=== PATIENT | female | born 1985 | race Caucasian/White ===

== ENCOUNTER 2024-04-02 10:23 | Outpatient (AMB) | payer OTHER, SELFPAY ==
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
[2024-04-02 10:56] VITALS: BP 102/80; PULSE 92; O2SAT 99; BMI 44.2
== END 2024-04-02 12:31 | disposition home or self-care (01) ==
PROVIDERS: Visit Provider Internal Medicine
DX: S61.452A Open bite of left hand, initial encounter (principal); W55.01XA Bitten by cat, initial encounter; E66.01 Morbid (severe) obesity due to excess calories; Z68.41 Body mass index [BMI] 40.0-44.9, adult; F41.1 Generalized anxiety disorder; Z87.442 Personal history of urinary calculi

== ENCOUNTER → 2024-04-02 10:23 | Outpatient (BNVA) | payer SELFPAY | PROVIDERS: Visit Provider Internal Medicine | DX: N20.0 Calculus of kidney (principal) ==

== ENCOUNTER 2024-04-02 11:51 | Outpatient (REF) | payer OTHER, SELFPAY ==
[2024-04-02 13:12] LABS: MANUAL DIFF FLAG NO
[2024-04-02 13:19] LABS: Basophils Percent Auto 0.4 % (0-2); Eosinophils Absolute Auto 0.1 X10*3/uL (0.0-0.4); Eosinophils Percent Auto 1.3 % (0-4); Hemoglobin 13.5 g/dl (12.0-16.0); Imm Gran Abs Auto 0.02 X10*3/uL (0.00-0.03); Imm Gran Pct Auto 0.2 % (0.0-0.4); Lymphocytes Absolute Auto 2.8 X10*3/uL (1.2-4.9); Lymphocytes Percent Auto 27.9 % (20-40); Mean Corpuscular HGB Conc 33.8 g/dl (31.0-35.0); Mean Corpuscular Hemoglobin 28.1 pg (27.0-33.0); Mean Corpuscular Volume 83.3 fL (80.0-98.0); Mean Platelet Volume 11.4 fL (9.4-12.3); Monocytes Absolute Auto 0.6 X10*3/uL (0.1-1.2); Monocytes Percent Auto 5.8 % (2-11); Neutrophils Absolute Auto 6.5 x10*3/uL (2.0-8.3); Neutrophils Percent Auto 64.4 % (45-73); Platelet Count 250 X10*3/uL (160-400); Red Cell Distribution Width 12.7 % (11.0-16.0); White Blood Count 10.1 X10*3/uL (4.8-10.8)
== END 2024-04-02 11:52 | disposition home or self-care (01) ==
LOC: HO.HMGCLDS 11:51
PROVIDERS: PCP Internal Medicine; Visit Provider Internal Medicine
DX: S61.459A Open bite of unspecified hand, initial encounter (principal); W55.01XA Bitten by cat, initial encounter; Y99.9 Unspecified external cause status; Y93.9 Activity, unspecified; Y92.9 Unspecified place or not applicable
CPT/HCPCS: 36415; 85025; 90471; 90715; 96127

== ENCOUNTER 2024-05-09 15:40 | Outpatient (AMB) | payer OTHER, SELFPAY ==
--- NOTE | 2024-05-09 16:05 | A.OFFPSYCH_ITS ---
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 Allergies adhesive Adverse Reaction (Verified 04/02/24 11:19) rash Medication List - Last Reconciled 05/09/24 by VALENTINA Davila ac-eth estradiol 1-20 mg-mcg 1 tab PO DAILY omeprazole 20 mg PO DAILY Saxenda (liraglutide (weight loss)) inject subcutaneously once daily: week 1 = 0.6 mg; week 2 = 1.2 mg; week 3 = 1.8 mg; week 4 = 2.4 mg; then 3 mg daily subcut NS HPI- Psychiatric Chief Complaint: consultation HPI Narrative: pt reports significant depressin and anxiety; she avoids socializing due to anxiety and ruminating that she said or did something wrong;she worries all the time about a wide range of things. she has anxiety attacks; she sleeps poorly; she is very critical of herself; she feel tired; wakes frequently through the night. Past Psychiatric History: outpt med trials with PCP sertraline and lexapro not effective. Mental Status Exam Mental Status Exam Patient Appearance: Well Grooomed, Fatigued and Appropriate Patient Orientation: Person, Place, Time and Situation Level of Consciousness: Appropriate and Alert Patient Behavior: Appropriate and Crying (tearful) Mood Description: Depressed and Anxious Affect Description: Depressed and Anxious Patient Cognition Impaired: No Ability to Follow Directions: Good Speech Pattern: Clear and Soft-Spoken Memory Description: Intact Hallucinations: None Delusions: Not Present Thought Process: Intact, Rumination and Goal Oriented Thought Content: positive for Intact, positive for Goal Oriented and positive for Preoccupation Judgement: Good Assessment and Plan Assessment & Plan (1) Generalized anxiety disorder: Status: Acute Code(s): F41.1 - Generalized anxiety disorder (2) Major depressive disorder, single episode, moderate: Status: Acute Code(s): F32.1 - Major depressive disorder, single episode, moderate Medications: New duloxetine (Cymbalta) 30 mg PO DAILY 30 caps 1RF trazodone 50 mg PO BEDTIME PRN 30 tabs 1RF sleep Orders: Orders Vitamin D 25-OH (D2 and D3) Today F32.1 - Major depressive disorder, single episode, moderate Magnesium Today F32.1 - Major depressive disorder, single episode, moderate Comprehensive [place]. Panel Fast Today F41.1 - Generalized anxiety disorder Vitamin B12 and Folate Today F32.1 - Major depressive disorder, single episode, moderate, F41.1 - Generalized anxiety disorder TSH reflex Free T4 Today F32.1 - Major depressive disorder, single episode, moderate, F41.1 - Generalized anxiety disorder Counseling and coordination of Care Pt. Self Management counseling: Maintenance-social rhythm, Mod caffeine/ETOH intake, Nutrition education and improvement, Sleep hygiene, General coping skills and Problem solving Medication management counseling: Effectiveness, Side effects, Dosing range, Duration, Drug interaction and Adherence Diagnosis and Prognosis Counseling: Accuracy of diagnosis, Prognosis over time, Impact of diagnosis on life functions, Impact of family relationship, Problematic behaviors secondary to diagnosis and Adequacy of current interventions Details: I spent 75 minutes reviewing the record, seeing the patient and documenting in the medical record. Counseling provided to the patient/caregiver as outlined below. Addressed patient/caregiver concerns regarding current medication regime including effective adherence. Addressed patient/caregiver concerns regarding diagnosis and prognosis including accuracy of diagnosis, prognosis over time, impact of diagnosis. Addressed patient/caregiver concerns regarding impact of recent stressors. [facility] Medical History (Updated 05/09/24 @ 16:48 by Shaniqua Clark APRN) Recurrent nephrolithiasis Obesity Generalized anxiety disorder Cat bite of hand Hx of abnormal cervical Pap smear History of nephrolithiasis Surgical History (Updated 04/02/24 @ 11:30 by Cherelle Aragon MD) History of lithotripsy History of tubal ligation Hx of section Hx of dilation and curettage Family History (Updated 04/02/24 @ 11:32 by Cherelle Aragon MD) Father Substance use disorder Alcoholism Paternal Aunt Breast cancer Melanoma Mother Thyroid condition Social History (Updated 04/02/24 @ 11:34 by Cherelle Aragon MD) Housing: House Patient Tobacco Use Status: Former Tobacco user Tobacco use type: Cigarette e-Cigarette/Vaping Use: Never Used Substance Use Type: Marijuana service: No Current occupational status: employed 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
== END 2024-05-09 17:09 | disposition home or self-care (01) ==
LOC: HO.HOP 15:40
PROVIDERS: PCP Internal Medicine; Visit Provider Clinical Nurse Specialist Psychiatric/Mental Health
DX: F41.1 Generalized anxiety disorder (principal); F32.1 Major depressive disorder, single episode, moderate
CPT/HCPCS: 90792

== ENCOUNTER → 2024-05-09 15:40 | Outpatient (BNVA) | payer OTHER, SELFPAY | PROVIDERS: PCP Internal Medicine; Visit Provider Clinical Nurse Specialist Psychiatric/Mental Health | DX: F41.1 Generalized anxiety disorder (principal); F32.1 Major depressive disorder, single episode, moderate | CPT/HCPCS: 90792 ==

== ENCOUNTER 2024-06-09 15:34 | Outpatient (AMB) | payer OTHER, SELFPAY ==
--- NOTE | 2024-06-09 16:15 | MHC.OFFVISPS ---
Intake Intake Visit Reasons: f/u consultation Building Code Administrator Required: No Allergies adhesive Adverse Reaction (Verified 04/02/24 11:19) rash Medication List - Last Reconciled 06/09/24 by Shaniqua Clark APRN duloxetine (Cymbalta) 30 mg PO DAILY norethindrone ac-eth estradiol 1-20 mg-mcg 1 tab PO DAILY omeprazole 20 mg PO DAILY Saxenda (liraglutide (weight loss)) inject subcutaneously once daily: week 1 = 0.6 mg; week 2 = 1.2 mg; week 3 = 1.8 mg; week 4 = 2.4 mg; then 3 mg daily subcut NS trazodone 100 mg PO BEDTIME PRN HPI- Psychiatric Chief Complaint: f/u consultation HPI Narrative: Patient reports some improvement with Cymbalta 30 mg. She does have some increased anxiety since learning she will have to have a hysterectomy. She trouble sleeping at night despite 100 mg trazodone she still wakes after 2-3 hours. She has no sedation patient. She has no side effects from the medication. She reports no SI no HI. her PHQ-9 equals 12. Her G A D 7 equals 11 Past Psychiatric History: outpt med trials with PCP sertraline and lexapro not effective. Subjective Subjective Subjective Medication Compliance: Yes Review of Systems Medical Review of Systems: unchanged Mental Status Exam Mental Status Exam Patient Appearance: Well Grooomed Patient Orientation: Person, Place, Time and Situation Level of Consciousness: Awake and Appropriate Patient Behavior: Appropriate Mood Description: Anxious and Sad Affect Description: Anxious and Sad Patient Cognition Impaired: No Ability to Follow Directions: Good Speech Pattern: Clear Memory Description: Intact Hallucinations: None Delusions: Not Present Thought Process: Intact Thought Content: positive for Intact Judgement: Good Assessment and Plan Assessment & Plan (1) Major depressive disorder, single episode, moderate: Status: Acute Code(s): F32.1 - Major depressive disorder, single episode, moderate (2) Generalized anxiety disorder: Status: Acute Code(s): F41.1 - Generalized anxiety disorder Plan Increase duloxetine to 60 mg daily Increase trazodone to 150 mg at bedtime. Return in 4-6 weeks Medications: New duloxetine 60 mg PO DAILY 90 caps 1RF Changed From trazodone 100 mg PO BEDTIME PRN 30 tabs 2RF sleep To trazodone 150 mg (1.5 x 100 mg) PO BEDTIME PRN 135 tabs 2RF sleep Discontinued duloxetine (Cymbalta) Discontinued Reason: Doctor's Order 30 mg PO DAILY 30 caps 1RF On Hold Saxenda (liraglutide (weight loss)) Hold Comment: Doctor's Order inject subcutaneously once daily: week 1 = 0.6 mg; week 2 = 1.2 mg; week 3 = 1.8 mg; week 4 = 2.4 mg; then 3 mg daily subcut 15 mL 0RF NS E66.01 - Morbid (severe) obesity due to excess calories, Z68.41 - Body mass index [BMI] 40.0-44.9, adult Counseling and coordination of Care Pt. Self Management counseling: Maintenance-social rhythm, Behavior activation, General coping skills and Problem solving Medication management counseling: Effectiveness, Side effects, Dosing range, Duration and Drug interaction Diagnosis and Prognosis Counseling: Accuracy of diagnosis, Prognosis over time, Impact of diagnosis on life functions, Problematic behaviors secondary to diagnosis and Adequacy of current interventions Details: I spent [] minutes reviewing the record, seeing the patient and documenting in the medical record. Counseling provided to the patient/caregiver as outlined below. Addressed patient/caregiver concerns regarding current medication regime including effective adherence. Addressed patient/caregiver concerns regarding diagnosis and prognosis including accuracy of diagnosis, prognosis over time, impact of diagnosis. Addressed patient/caregiver concerns regarding impact of recent stressors. [facility] Medical History (Updated 05/09/24 @ 16:48 by Shaniqua Clark APRN) Recurrent nephrolithiasis Obesity Generalized anxiety disorder Cat bite of hand Hx of abnormal cervical Pap smear History of nephrolithiasis Surgical History (Updated 04/02/24 @ 11:30 by Cherelle Aragon MD) History of lithotripsy History of tubal ligation Hx of section Hx of dilation and curettage Family History (Updated 04/02/24 @ 11:32 by Cherelle Aragon MD) Father Substance use disorder Alcoholism Paternal Aunt Breast cancer Melanoma Mother Thyroid condition Social History (Updated 04/02/24 @ 11:34 by Cherelle Aragon MD) Housing: House Patient Tobacco Use Status: Former Tobacco user Tobacco use type: Cigarette e-Cigarette/Vaping Use: Never Used Substance Use Type: Marijuana service: No Current occupational status: employed 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
== END 2024-06-09 16:36 | disposition home or self-care (01) ==
LOC: HO.HOP 15:34
PROVIDERS: PCP Internal Medicine; Visit Provider Clinical Nurse Specialist Psychiatric/Mental Health
DX: F32.1 Major depressive disorder, single episode, moderate (principal); F41.1 Generalized anxiety disorder
CPT/HCPCS: 99214

== ENCOUNTER → 2024-06-09 15:34 | Outpatient (BNVA) | payer OTHER, SELFPAY | PROVIDERS: PCP Internal Medicine; Visit Provider Clinical Nurse Specialist Psychiatric/Mental Health ==

== ENCOUNTER 2024-07-10 15:55 | Outpatient (AMB) | payer OTHER, SELFPAY ==
--- NOTE | 2024-07-10 16:08 | MHC.OFFVISPS ---
Intake Intake Visit Reasons: f/u consultation Oil Treater Required: No Allergies adhesive Adverse Reaction (Verified 04/02/24 11:19) rash Medication List - Last Reconciled 07/10/24 by Shaniqua Clark APRN duloxetine 120 mg (2 x 60 mg) PO DAILY norethindrone ac-eth estradiol 1-20 mg-mcg 1 tab PO DAILY omeprazole 20 mg PO DAILY trazodone 150 mg (1.5 x 100 mg) PO BEDTIME PRN HPI- Psychiatric Chief Complaint: f/u consultation HPI Narrative: Pt stable overall ; reports anxiety is decreased; depression decreased; GAD7 was 19 now down to 2.5. PHQ9 was 17 now is 4. She is anticipating surgery for hysterectomy; she is a little anxious but coping well; she has consult on Jul 22. No other changes; no SI or HI Past Psychiatric History: outpt med trials with PCP sertraline and lexapro not effective. Subjective Subjective Subjective Medication Compliance: Yes Side effects from medications: No Review of Systems Medical Review of Systems: unchanged Mental Status Exam Mental Status Exam Patient Appearance: Well Grooomed and Appropriate Patient Orientation: Person, Place, Time and Situation Level of Consciousness: Awake and Appropriate Patient Behavior: Appropriate and Cooperative Mood Description: Nervous Affect Description: Nervous Patient Cognition Impaired: No Ability to Follow Directions: Good Speech Pattern: Clear and Appropriate Memory Description: Intact Hallucinations: None Delusions: Not Present Thought Process: Intact Thought Content: positive for Intact Judgement: Fair Assessment and Plan Assessment & Plan (1) Major depressive disorder, single episode, moderate: Status: Acute Code(s): F32.1 - Major depressive disorder, single episode, moderate (2) Generalized anxiety disorder: Status: Acute Code(s): F41.1 - Generalized anxiety disorder Plan continue medications cymbalta and trazodone retrun in 8 weeks Counseling and coordination of Care Pt. Self Management counseling: Mod caffeine/ETOH intake, Sleep hygiene, General coping skills and Problem solving Medication management counseling: Effectiveness, Side effects, Dosing range, Duration, Drug interaction and Adherence Diagnosis and Prognosis Counseling: Accuracy of diagnosis, Prognosis over time, Impact of diagnosis on life functions, Impact of family relationship, Problematic behaviors secondary to diagnosis and Adequacy of current interventions Details: I spent 40 minutes reviewing the record, seeing the patient and documenting in the medical record. Counseling provided to the patient/caregiver as outlined below. Addressed patient/caregiver concerns regarding current medication regime including effective adherence. Addressed patient/caregiver concerns regarding diagnosis and prognosis including accuracy of diagnosis, prognosis over time, impact of diagnosis. Addressed patient/caregiver concerns regarding impact of recent stressors. [facility] Medical History (Updated 05/09/24 @ 16:48 by Shaniqua Clark APRN) Recurrent nephrolithiasis Obesity Generalized anxiety disorder Cat bite of hand Hx of abnormal cervical Pap smear History of nephrolithiasis Surgical History (Updated 04/02/24 @ 11:30 by Cherelle Aragon MD) History of lithotripsy History of tubal ligation Hx of section Hx of dilation and curettage Family History (Updated 04/02/24 @ 11:32 by Cherelle Aragon MD) Father Substance use disorder Alcoholism Paternal Aunt Breast cancer Melanoma Mother Thyroid condition Social History (Updated 04/02/24 @ 11:34 by Cherelle Aragon MD) Housing: House Patient Tobacco Use Status: Former Tobacco user Tobacco use type: Cigarette e-Cigarette/Vaping Use: Never Used Substance Use Type: Marijuana service: No Current occupational status: employed 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
== END 2024-07-10 16:49 | disposition home or self-care (01) ==
LOC: HO.HOP 15:55
PROVIDERS: PCP Internal Medicine; Visit Provider Clinical Nurse Specialist Psychiatric/Mental Health
DX: F32.1 Major depressive disorder, single episode, moderate (principal); F41.1 Generalized anxiety disorder
CPT/HCPCS: 99214

== ENCOUNTER 2024-09-09 16:01 | Outpatient (AMB) | payer OTHER, SELFPAY ==
--- NOTE | 2024-09-09 16:28 | MHC.OFFVISPS ---
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 Required: No Allergies adhesive Adverse Reaction (Verified 04/02/24 11:19) rash Medication List - Last Reconciled 09/09/24 by Shaniqua Clark APRN [Compound Semaglutide IM] duloxetine 120 mg (2 x 60 mg) PO DAILY omeprazole 20 mg PO DAILY trazodone 200 mg (2 x 100 mg) PO BEDTIME PRN trospium 20 mg PO BID HPI- Psychiatric Chief Complaint: f/u consultation HPI Narrative: pt has surgery on Sunday for full hystrectomy; she is very anxious; cant sleep through night; falls alseep but then wakes up and tosses and turns the rest of night; she is more anxious the closer it gets to surgery; she is trying to be prepared; she has good support form family, and chr=urch. no side effects from meds; no SI or HI. surgeon gave her ativan 0.5mg for the night before surgery; discussed nt changing her meds too muchbefore surgery; discussed temporarily adding 0.25mg of ativan in middle of night if can't fall back to sleep until . she will follow surgeon instructiions for the night before surgery and take the ativan 0.5mg . after surgery she will not take any ativan until she is completely off opiates. Past Psychiatric History: outpt med trials with PCP sertraline and lexapro not effective. Mental Status Exam Mental Status Exam Patient Appearance: Well Grooomed Patient Orientation: Person, Place, Time and Situation Level of Consciousness: Awake Patient Behavior: Appropriate Mood Description: Anxious Affect Description: Anxious Patient Cognition Impaired: No Hallucinations: None Thought Process: Intact Thought Content: positive for Intact Judgement: Good Assessment and Plan Assessment & Plan (1) Major depressive disorder, single episode, moderate: Status: Acute Code(s): F32.1 - Major depressive disorder, single episode, moderate (2) Generalized anxiety disorder: Status: Acute Code(s): F41.1 - Generalized anxiety disorder Plan add 0.25mg of ativan in middle of night if can't fall back to sleep until Sunday. follow surgeon instructions for the night before surgery and take the ativan 0.5mg after surgery she will not take any ativan until she is completely off opiates. return in 4 weeks for f/u - if not able to come i ok to have telehealth session will see 1-2 more times and then pt will return to PCP Medications: New lorazepam 0.25 mg (1/2 x 0.5 mg) PO BEDTIME PRN 20 tabs 0RF anxiety Refilled duloxetine 120 mg (2 x 60 mg) PO DAILY 180 caps 1RF trazodone 200 mg (2 x 100 mg) PO BEDTIME PRN 120 tabs 2RF sleep Counseling and coordination of Care Pt. Self Management counseling: Med illness tx adherence, Mod caffeine/ETOH intake and Sleep hygiene Medication management counseling: Effectiveness, Side effects, Dosing range, Duration, Drug interaction and Adherence Diagnosis and Prognosis Counseling: Accuracy of diagnosis, Prognosis over time, Impact of diagnosis on life functions, Impact of family relationship, Problematic behaviors secondary to diagnosis and Adequacy of current interventions Details: I spent 37 minutes reviewing the record, seeing the patient and documenting in the medical record. Counseling provided to the patient/caregiver as outlined below. Addressed patient/caregiver concerns regarding current medication regime including effective adherence. Addressed patient/caregiver concerns regarding diagnosis and prognosis including accuracy of diagnosis, prognosis over time, impact of diagnosis. Addressed patient/caregiver concerns regarding impact of recent stressors. [facility] Medical History (Updated 05/09/24 @ 16:48 by Shaniqua Clark APRN) Recurrent nephrolithiasis Obesity Generalized anxiety disorder Cat bite of hand Hx of abnormal cervical Pap smear History of nephrolithiasis Surgical History (Updated 04/02/24 @ 11:30 by Cherelle Aragon MD) History of lithotripsy History of tubal ligation Hx of section Hx of dilation and curettage Family History (Updated 04/02/24 @ 11:32 by Cherelle Aragon MD) Father Substance use disorder Alcoholism Paternal Aunt Breast cancer Melanoma Mother Thyroid condition Social History (Updated 04/02/24 @ 11:34 by Cherelle Aragon MD) Housing: House Patient Tobacco Use Status: Former Tobacco user Tobacco use type: Cigarette e-Cigarette/Vaping Use: Never Used Substance Use Type: Marijuana service: No Current occupational status: employed 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
--- OUTSIDE RECORDS SUMMARY | 2024-09-09 19:36 | XMS_ITS | Clinical Summary ---
Author Organization [facility] Address [address] [place] [address] Phone Care Team Providers Care Imcu Nurse Name Role Phone Unavailable Primary Care Provider Unavailabl e Immunizations Immunization Administration Dates Next Due DTP 08/27/1992, 1,08/17/1989,10/03 Hep B, ped/adol 04/04/2000,12/05/1999,02/23/1999 Hib (PRP-T) 03/04/1991 IPV 08/27/1992 MMR 02/23/1999,08/17/1989 Meningococcal Conj (Menactra) MCV4P 12/01/2005 OPV 03/04/1991,08/17/1989,1987 Td (adult) (MBL), 2 Lf tetan us toxoid, PF, adsorbed 04/04/2000 Td (adult) (Tenivac), 5 Lf t etanus toxoid, PF, adsorbed 12/15/1994 Family History Relation Name Status Comments Brother Brother: ADD/AD HD Father Alive Father: Alive a nd well Mother Mother: Asthma, Migraines Other No family histo ry of Deafness, No family history of Autism, Family history of ADD/ADHD, Family history of Strabismus/amblyopia, No family history of Elevated cholesterol, No family history of Obesity, Family history of Migraines, No family history of Diabetes mellitus, No family history of Developmental dislocation of hip, No family history of Sudden /[place] under age 55, No family history of Asthma, No family history of Seizure disorder Paternal Grandmother Alive Paterna l aunt: Cancer -skin Social History Tobacco Use Types Packs/Day Years Used Date Smoking Tobacco: Never Assessed Comments Unknown Sex and Gender Information Value Date Recorded Sex Assigned at Not on file Legal Sex Female 4:26 PM EDT Gender Identity Not on file Sexual Orientation Not on file Plan of Treatment Health Maintenance Due Date Last Done Comments Varicella Vaccines (1 of 2 - 13+ 2-dose series) 2000 DTaP,Tdap,and Td Vaccines (7 - Td or Tdap) 02/14/2023 02/14/2013, 12/21/2007, 04/04/2000, Additional history exists Influenza Vaccines (#1) 2024 05/13/20 20, 06/05/2019, 04/26/2018, Additional history exists COVID-19 Vaccine ( season) 2024 07/20/2021, 11/27/2020, 11/06/2020 HIB Vaccines Completed 03/04/1991 IPV Vaccines Completed 08/27/1992, 02/14, 08/17/1989, Additional history exists MMR Vaccines Completed 02/23/1999, 08/17/1989 Hepatitis B Vaccines Completed 04/04/2000, 12/05/1999, 02/23/1999 Meningococcal Vaccine Completed 12/01/2005 HPV Vaccines Aged Out No longer eligi ble based on patient's age to complete this topic Hepatitis A Vaccines Aged Out No long er eligible based on patient's age to complete this topic Men B Vaccine Aged Out No longer elig ible based on patient's age to complete this topic Pneumococcal Vaccine Aged Out No long er eligible based on patient's age to complete this topic
--- OUTSIDE RECORDS SUMMARY | 2024-09-09 19:36 | XMS_ITS | Encounter Summary ---
Author Organization [facility] Address [address] [place] [address] Phone Care Team Providers Care Ornament Setter Name Role Phone Kamilah Richardson MD Primary Care Provider [phone] Encounter Details Date Type Department Care Team (Late st Contact Info) Description 03/01/2017 Conversion Encounter [facility] - [address] [id number] Social History Tobacco Use Types Packs/Day Years Used Date Smoking Tobacco: Never Assessed Comments Unknown Sex and Gender Information Value Date Recorded Sex Assigned at Not on file Legal Sex Female 4:26 PM EDT Gender Identity Not on file Sexual Orientation Not on file documented as of this encounter Plan of Treatment Not on file documented as of this encounter Visit Diagnoses Not on filedocumented in this encounter Care Teams Ornament Setter Relationship Specialty Start Date End Date Kamilah Richardson MD [address] [place] [id number] PCP - General 02/23/17 10/26/22 documented as of this encounter
== END 2024-09-09 16:57 | disposition home or self-care (01) ==
LOC: HO.HOP 16:01
PROVIDERS: PCP Internal Medicine; Visit Provider Clinical Nurse Specialist Psychiatric/Mental Health
DX: F32.1 Major depressive disorder, single episode, moderate (principal); F41.1 Generalized anxiety disorder
CPT/HCPCS: 99214

== ENCOUNTER 2024-10-07 13:20 | Outpatient (AMB) | payer OTHER, SELFPAY ==
--- NOTE | 2024-10-07 13:10 | MHC.OFFVISPS ---
Intake Intake Visit Reasons: f/u consultation Allergies adhesive Adverse Reaction (Verified 04/02/24 11:19) rash Medication List - Last Reconciled 10/07/24 by Shaniqua Clark APRN [Compound Semaglutide IM] duloxetine 120 mg (2 x 60 mg) PO DAILY lorazepam 0.25 mg (1/2 x 0.5 mg) PO BEDTIME PRN omeprazole 20 mg PO DAILY trazodone 200 mg (2 x 100 mg) PO BEDTIME PRN trospium 20 mg PO BID HPI- Psychiatric Chief Complaint: f/u consultation HPI Narrative: follow up for depression, insomnia and anxiety pt stable had successful surgery recovering [place] anxious to go back to work no changes inmental status compliant with meds no side effects. Past Psychiatric History: outpt med trials with PCP sertraline and lexapro not effective. Subjective Subjective Subjective Medication Compliance: Yes Review of Systems Medical Review of Systems: unchanged Mental Status Exam Mental Status Exam Patient Appearance: Well Grooomed and Appropriate Patient Orientation: Person, Place, Time and Situation Level of Consciousness: Awake and Appropriate Patient Behavior: Appropriate Mood Description: Happy Affect Description: Happy Patient Cognition Impaired: No Ability to Follow Directions: Good Speech Pattern: Clear and Appropriate Memory Description: Intact Hallucinations: None Delusions: Not Present Thought Process: Intact and Goal Oriented Thought Content: positive for Intact Judgement: Good Telehealth Telehealth Telehealth Platform: Other (please specify) ([email or web address]) Location of provider rendering services: practice address Location of patient: address on file Patient Identification confirmed using: Name, : Yes Telehealth method: video Patient verbally consented to treatment: Yes Patient verbally consented to billing insurance company: Yes Patient informed of any privacy concerns related to visit: Yes Minutes spent on Phone/Video with Pt.: 30 Assessment and Plan Assessment & Plan (1) Major depressive disorder, single episode, moderate: Status: Acute Code(s): F32.1 - Major depressive disorder, single episode, moderate (2) Generalized anxiety disorder: Status: Acute Code(s): F41.1 - Generalized anxiety disorder Plan continue cymbalta and trazodone follow up in 4-6 weeks Counseling and coordination of Care Pt. Self Management counseling: Maintenance-social rhythm, Med illness tx adherence, Mod caffeine/ETOH intake, Nutrition education and improvement, Sleep hygiene and Problem solving Medication management counseling: Effectiveness, Side effects, Dosing range, Duration, Drug interaction and Adherence Diagnosis and Prognosis Counseling: Accuracy of diagnosis, Prognosis over time, Impact of diagnosis on life functions, Impact of family relationship, Problematic behaviors secondary to diagnosis and Adequacy of current interventions Details: I spent 35 minutes reviewing the record, seeing the patient and documenting in the medical record. Counseling provided to the patient/caregiver as outlined below. Addressed patient/caregiver concerns regarding current medication regime including effective adherence. Addressed patient/caregiver concerns regarding diagnosis and prognosis including accuracy of diagnosis, prognosis over time, impact of diagnosis. Addressed patient/caregiver concerns regarding impact of recent stressors. [facility] Medical History (Updated 05/09/24 @ 16:48 by Shaniqua Clark APRN) Recurrent nephrolithiasis Obesity Generalized anxiety disorder Cat bite of hand Hx of abnormal cervical Pap smear History of nephrolithiasis Surgical History (Updated 04/02/24 @ 11:30 by Cherelle Aragon MD) History of lithotripsy History of tubal ligation Hx of section Hx of dilation and curettage Family History (Updated 04/02/24 @ 11:32 by Cherelle Aragon MD) Father Substance use disorder Alcoholism Paternal Aunt Breast cancer Melanoma Mother Thyroid condition Social History (Updated 04/02/24 @ 11:34 by Cherelle Aragon MD) Housing: House Patient Tobacco Use Status: Former Tobacco user Tobacco use type: Cigarette e-Cigarette/Vaping Use: Never Used Substance Use Type: Marijuana service: No Current occupational status: employed 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
== END 2024-10-07 13:22 | disposition home or self-care (01) ==
LOC: HO.HOP 13:20
PROVIDERS: PCP Internal Medicine; Visit Provider Clinical Nurse Specialist Psychiatric/Mental Health
DX: F32.1 Major depressive disorder, single episode, moderate (principal); F41.1 Generalized anxiety disorder
CPT/HCPCS: 98006

== ENCOUNTER → 2024-10-07 13:20 | Outpatient (BNVA) | payer OTHER, SELFPAY | PROVIDERS: PCP Internal Medicine; Visit Provider Clinical Nurse Specialist Psychiatric/Mental Health ==

== ENCOUNTER 2024-11-20 16:27 | Outpatient (AMB) | payer OTHER, SELFPAY ==
--- NOTE | 2024-11-20 16:03 | MHC.OFFVISPS ---
Intake Intake Visit Reasons: f/u consultation International Account Executive Required: No Allergies adhesive Adverse Reaction (Verified 04/02/24 11:19) rash Medication List - Last Reconciled 11/20/24 by Shaniqua Clark APRN [Compound Semaglutide IM] duloxetine 120 mg (2 x 60 mg) PO DAILY lorazepam 0.25 mg (1/2 x 0.5 mg) PO BEDTIME PRN omeprazole 20 mg PO DAILY trazodone 200 mg (2 x 100 mg) PO BEDTIME PRN trospium 20 mg PO BID HPI- Psychiatric Chief Complaint: f/u consultation HPI Narrative: pt reports stable mood overall; she reports sadness and anxiety due to news of 2 deaths in her family- one from suicide and the other from cancer. she reports some trouble sleeping. waking in middle of night. medications help. she denies any side effects from medications; she denies SI or HI. She is functioning well at home and work. Past Psychiatric History: outpt med trials with PCP sertraline and lexapro not effective. Subjective Subjective Subjective Medication Compliance: Yes Side effects from medications: No Review of Systems Medical Review of Systems: unchanged Mental Status Exam Mental Status Exam Patient Appearance: Well Grooomed and Appropriate Patient Orientation: Person, Place, Time and Situation Level of Consciousness: Awake, Appropriate and Alert Patient Behavior: Appropriate and Cooperative Mood Description: Sad Affect Description: Sad Patient Cognition Impaired: No Ability to Follow Directions: Good Speech Pattern: Clear Memory Description: Intact Hallucinations: None Delusions: Not Present Thought Process: Intact and Goal Oriented Thought Content: positive for Intact and positive for Goal Oriented Judgement: Fair Telehealth Telehealth Telehealth Platform: Other (please specify) ([email or web address]) Location of provider rendering services: practice address Location of patient: address on file Patient Identification confirmed using: Name, : Yes Telehealth method: video Patient verbally consented to treatment: Yes Patient verbally consented to billing insurance company: Yes Patient informed of any privacy concerns related to visit: Yes Minutes spent on Phone/Video with Pt.: 25 Assessment and Plan Assessment & Plan (1) Major depressive disorder, single episode, moderate: Status: Acute Code(s): F32.1 - Major depressive disorder, single episode, moderate (2) Generalized anxiety disorder: Status: Acute Code(s): F41.1 - Generalized anxiety disorder Plan continue duloxetine and trazodone okay to increase ativan to 0.5mg at bedtime prn for 30 days Medications: Changed From lorazepam 0.25 mg (1/2 x 0.5 mg) PO BEDTIME PRN 20 tabs 0RF anxiety To lorazepam 0.5 mg PO BEDTIME PRN 30 tabs 0RF anxiety Refilled duloxetine 120 mg (2 x 60 mg) PO DAILY 180 caps 1RF trazodone 200 mg (2 x 100 mg) PO BEDTIME PRN 120 tabs 2RF sleep Counseling and coordination of Care Pt. Self Management counseling: Maintenance-social rhythm, Mod caffeine/ETOH intake, Sleep hygiene, Behavior activation, General coping skills and Problem solving Medication management counseling: Effectiveness, Side effects, Dosing range, Duration, Drug interaction and Adherence Diagnosis and Prognosis Counseling: Accuracy of diagnosis, Prognosis over time, Impact of diagnosis on life functions, Impact of family relationship, Problematic behaviors secondary to diagnosis and Adequacy of current interventions Details: I spent 35 minutes reviewing the record, seeing the patient and documenting in the medical record. Counseling provided to the patient/caregiver as outlined below. Addressed patient/caregiver concerns regarding current medication regime including effective adherence. Addressed patient/caregiver concerns regarding diagnosis and prognosis including accuracy of diagnosis, prognosis over time, impact of diagnosis. Addressed patient/caregiver concerns regarding impact of recent stressors. [facility] Medical History (Updated 11/07/24 @ 15:55 by Cherelle Aragon MD) Skin cancer screening Recurrent nephrolithiasis Obesity Generalized anxiety disorder Cat bite of hand Hx of abnormal cervical Pap smear History of nephrolithiasis Surgical History (Updated 04/02/24 @ 11:30 by Cherelle Aragon MD) History of lithotripsy History of tubal ligation Hx of section Hx of dilation and curettage Family History (Updated 04/02/24 @ 11:32 by Cherelle Aragon MD) Father Substance use disorder Alcoholism Paternal Aunt Breast cancer Melanoma Mother Thyroid condition Social History (Updated 04/02/24 @ 11:34 by Cherelle Aragon MD) Housing: House Patient Tobacco Use Status: Former Tobacco user Tobacco use type: Cigarette e-Cigarette/Vaping Use: Never Used Substance Use Type: Marijuana service: No Current occupational status: employed 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
--- OUTSIDE RECORDS SUMMARY | 2024-11-20 16:29 | XMS_ITS | Encounter Summary ---
Author Organization [facility] Address [address] [place] [phone] Phone Care Team Providers Care Display And Banner Designer Name Role Phone Kamilah Richardson MD Primary Care Provider [phone] Encounter Details Date Type Department Care Team (Late st Contact Info) Description 03/01/2017 Conversion Encounter [facility] - [address] [address] Social History Tobacco Use Types Packs/Day Years [...] on filedocumented in this encounter Care Teams Display And Banner Designer Relationship Specialty Start Date End Date Kamilah Richardson MD [address] [place] [phone] PCP - General 02/23/17 10/26/22 documented as of this encounter
--- OUTSIDE RECORDS SUMMARY | 2024-11-20 16:29 | XMS_ITS | Clinical Summary ---
Author Organization [facility] Address [address] [place] [id number] Phone Care Team Providers Care Audience Development Manager Name Role Phone Unavailable Primary Care Provider [...] of hip, No family history of Sudden /[place] under age 55, No family history of [...]
== END 2024-11-20 16:30 | disposition home or self-care (01) ==
LOC: HO.HOP 16:27
PROVIDERS: PCP Internal Medicine; Visit Provider Clinical Nurse Specialist Psychiatric/Mental Health
DX: F32.1 Major depressive disorder, single episode, moderate (principal); F41.1 Generalized anxiety disorder
CPT/HCPCS: 99214

== ENCOUNTER → 2024-11-20 16:27 | Outpatient (BNVA) | payer OTHER, SELFPAY | PROVIDERS: PCP Internal Medicine; Visit Provider Clinical Nurse Specialist Psychiatric/Mental Health ==

== ENCOUNTER 2025-01-13 12:09 | Outpatient (AMB) | payer OTHER, SELFPAY ==
--- NOTE | 2025-01-13 11:51 | A.OFFPSYCH_ITS ---
Intake Intake Visit Reasons: depression Associate Product Integrity Engineer Required: No Allergies adhesive Adverse Reaction (Verified 04/02/24 11:19) rash Medication List - Last Reconciled 01/13/25 by Shaniqua Clark APRN [Compound Semaglutide IM] duloxetine 120 mg (2 x 60 mg) PO DAILY lorazepam 0.5 mg PO BEDTIME PRN omeprazole 20 mg PO DAILY trazodone 200 mg (2 x 100 mg) PO BEDTIME PRN trospium 20 mg PO BID HPI- Psychiatric Chief Complaint: depression HPI Narrative: pt reports stable mood overall; she reports sadness and anxiety due to conflict with . she reports some trouble sleeping. waking in middle of night. medications help. she denies any side effects from medications; she denies SI or HI. She is functioning well at home and work. Past Psychiatric History: outpt med trials with PCP sertraline and lexapro not effective. Mental Status Exam Mental Status Exam Patient Appearance: Well Grooomed and Appropriate Patient Orientation: Person, Place, Time and Situation Level of Consciousness: Awake, Appropriate and Alert Patient Behavior: Appropriate and Cooperative Mood Description: Sad Affect Description: Sad Patient Cognition Impaired: No Ability to Follow Directions: Good Speech Pattern: Clear Memory Description: Intact Hallucinations: None Delusions: Not Present Thought Process: Intact and Goal Oriented Thought Content: positive for Intact and positive for Goal Oriented Judgement: Fair Telehealth Telehealth Telehealth Platform: Other (please specify) ([email or web address]) Location of provider rendering services: practice address Location of patient: address on file Patient Identification confirmed using: Name, : Yes Telehealth method: video Patient verbally consented to treatment: Yes Patient verbally consented to billing insurance company: Yes Patient informed of any privacy concerns related to visit: Yes Minutes spent on Phone/Video with Pt.: 25 Assessment and Plan Assessment & Plan (1) Major depressive disorder, single episode, moderate: Status: Acute Code(s): F32.1 - Major depressive disorder, single episode, moderate (2) Generalized anxiety disorder: Status: Acute Code(s): F41.1 - Generalized anxiety disorder Plan continue duloxetine and trazodone okay to increase ativan to 0.5mg at bid and bedtime prn for anxiety/sleep Medications: Changed From lorazepam 0.5 mg PO BEDTIME PRN 30 tabs 0RF anxiety To lorazepam 0.5 mg PO BID PRN 45 tabs 1RF anxiety/insomnia Counseling and coordination of Care Pt. Self Management counseling: Maintenance-social rhythm, Mod caffeine/ETOH intake, Sleep hygiene, Behavior activation, General coping skills and Problem solving Medication management counseling: Effectiveness, Side effects, Dosing range, Duration, Drug interaction and Adherence Diagnosis and Prognosis Counseling: Accuracy of diagnosis, Prognosis over time, Impact of diagnosis on life functions, Impact of family relationship, Probl ematic behaviors secondary to diagnosis and Adequacy of current interventions Details: I spent 35 minutes reviewing the record, seeing the patient and documenting in the medical record. Counseling provided to the patient/caregiver as outlined below. Addressed patient/caregiver concerns regarding current medication regime including effective adherence. Addressed patient/caregiver concerns regarding diagnosis and prognosis including accuracy of diagnosis, prognosis over time, impact of diagnosis. Addressed patient/caregiver concerns regarding impact of recent stressors. REPLACED BY [facility] Medical History (Updated 11/07/24 @ 15:55 by Cherelle Aragon MD) Skin cancer screening Recurrent nephrolithiasis Obesity Generalized anxiety disorder Cat bite of hand Hx of abnormal cervical Pap smear History of nephrolithiasis Surgical History (Updated 04/02/24 @ 11:30 by Cherelle Aragon MD) History of lithotripsy History of tubal ligation Hx of section Hx of dilation and curettage Family History (Updated 04/02/24 @ 11:32 by Cherelle Aragon MD) Father Substance use disorder Alcoholism Paternal Aunt Breast cancer Melanoma Mother Thyroid condition Social History (Updated 04/02/24 @ 11:34 by Cherelle Aragon MD) Housing: House Patient Tobacco Use Status: Former Tobacco user Tobacco use type: Cigarette e-Cigarette/Vaping Use: Never Used Substance Use Type: Marijuana service: No Current occupational status: employed 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
--- OUTSIDE RECORDS SUMMARY | 2025-01-13 13:12 | XMS_ITS | Clinical Summary ---
Author Organization [facility] Address [address] [place] [id number] Phone Care Team Providers Care Forestry Aid Technician Name Role Phone Unavailable Primary Care Provider [...] 02/14/2023 02/14/2013, 12/21/2007, 04/04/2000, Additional history exists COVID-19 Vaccine ( season) 2024 07/20/2021, 11/27/2020, 11/06/2020 Influenza Vaccines (#1) 2025 05/13/20, 06/05/2019, 04/26/2018, Additional history exists HIB Vaccines Completed 03/04/1991 IPV Vaccines Completed [...]
== END 2025-01-13 12:10 | disposition home or self-care (01) ==
LOC: HO.HOP 12:09
PROVIDERS: PCP Internal Medicine; Visit Provider Clinical Nurse Specialist Psychiatric/Mental Health
DX: F32.1 Major depressive disorder, single episode, moderate (principal); F41.1 Generalized anxiety disorder
CPT/HCPCS: 99214

== ENCOUNTER 2025-02-10 16:02 | Outpatient (AMB) | payer OTHER, SELFPAY ==
--- NOTE | 2025-02-10 16:13 | MHC.OFFVISPS ---
Intake Intake Visit Reasons: depression Varnisher Required: No Allergies adhesive Adverse Reaction (Verified 04/02/24 11:19) rash Medication List - Last Reconciled 02/10/25 by Shaniqua Clark APRN [Compound Semaglutide IM] duloxetine 120 mg (2 x 60 mg) PO DAILY lorazepam 0.5 mg PO BID PRN omeprazole 20 mg PO DAILY trazodone 200 mg (2 x 100 mg) PO BEDTIME PRN trospium 20 mg PO BID HPI- Psychiatric Chief Complaint: depression HPI Narrative: pt reports less depression but increase anxiety, panic, tachycardia. anxiety about conflict with . Father just dx with a tumor on lung- awaiting biopsy. she reports some trouble sleeping. waking in middle of night. medications help with falling asleep but wakes 4-6 times every bight; she denies SI or HI. Anxiety is effecting functioning at home and work. Past Psychiatric History: outpt med trials with PCP sertraline and lexapro not effective. Subjective Subjective Subjective Medication Compliance: Yes Side effects from medications: No Review of Systems Medical Review of Systems: unchanged Mental Status Exam Mental Status Exam Patient Appearance: Well Grooomed and Appropriate Patient Orientation: Person, Place, Time and Situation Level of Consciousness: Awake, Appropriate and Alert Patient Behavior: Appropriate and Cooperative Mood Description: Anxious and Sad Affect Description: Anxious and Sad Patient Cognition Impaired: No Ability to Follow Directions: Good Speech Pattern: Clear Memory Description: Intact Hallucinations: None Delusions: Not Present Thought Process: Intact and Goal Oriented Thought Content: positive for Intact and positive for Goal Oriented Judgement: Fair Assessment and Plan Assessment & Plan (1) Major depressive disorder, single episode, moderate: Status: Acute Code(s): F32.1 - Major depressive disorder, single episode, moderate (2) Generalized anxiety disorder: Status: Acute Code(s): F41.1 - Generalized anxiety disorder Plan reduce duloxetine to 90mg daily reduce trazodone to 150mg at bedtime start clonazepma 0.25mg tid prn anxiety stop ativan EKG 2 tachydcardai sleep study at home due to ongoing insomnia with multiple awakening despite multiple med trials Medications: New clonazepam (Klonopin) 0.25 mg (1/2 x 0.5 mg) PO TID PRN 45 tabs 2RF anxiety duloxetine (Cymbalta) 30 mg PO DAILY 90 caps 0RF Changed From duloxetine 120 mg (2 x 60 mg) PO DAILY 180 caps 1RF To duloxetine 60 mg PO DAILY 90 caps 1RF From trazodone 200 mg (2 x 100 mg) PO BEDTIME PRN 120 tabs 2RF sleep To trazodone 150 mg (1.5 x 100 mg) PO BEDTIME PRN 75 tabs 2RF sleep Discontinued lorazepam Discontinued Reason: Doctor's Order 0.5 mg PO BID PRN 45 tabs 1RF anxiety/insomnia Orders: Orders RT home sleep study Today G47.00 - Insomnia, unspecified ECG 12 lead EKG Today R00.0 - Tachycardia, unspecified Counseling and coordination of Care Pt. Self Management counseling: Maintenance-social rhythm, Mod caffeine/ETOH intake, Sleep hygiene, Behavior activation, General coping skills and Problem solving Medication management counseling: Effectiveness, Side effects, Dosing range, Duration, Drug interaction and Adherence Diagnosis and Prognosis Counseling: Accuracy of diagnosis, Prognosis over time, Impact of diagnosis on life functions, Impact of family relationship, Problematic behaviors secondary to diagnosis and Adequacy of current interventions Details: I spent 40 minutes reviewing the record, seeing the patient and documenting in the medical record. Counseling provided to the patient/caregiver as outlined below. Addressed patient/caregiver concerns regarding current medication regime including effective adherence. Addressed patient/caregiver concerns regarding diagnosis and prognosis including accuracy of diagnosis, prognosis over time, impact of diagnosis. Addressed patient/caregiver concerns regarding impact of recent stressors. [facility] Medical History (Updated 02/10/25 @ 16:27 by Shaniqua Clark APRN) Skin cancer screening Recurrent nephrolithiasis Obesity Generalized anxiety disorder Cat bite of hand Hx of abnormal cervical Pap smear History of nephrolithiasis Surgical History (Updated 04/02/24 @ 11:30 by Cherelle Aragon MD) History of lithotripsy History of tubal ligation Hx of section Hx of dilation and curettage Family History (Updated 04/02/24 @ 11:32 by Cherelle Aragon MD) Father Substance use disorder Alcoholism Paternal Aunt Breast cancer Melanoma Mother Thyroid condition Social History (Updated 04/02/24 @ 11:34 by Cherelle Aragon MD) Housing: House Patient Tobacco Use Status: Former Tobacco user Tobacco use type: Cigarette e-Cigarette/Vaping Use: Never Used Substance Use Type: Marijuana service: No Current occupational status: employed 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
--- OUTSIDE RECORDS SUMMARY | 2025-02-10 16:38 | XMS_ITS | Clinical Summary ---
Author Organization [facility] Address [address] [place] [phone] Phone Care Team Providers Care Analytical Scientist Name Role Phone Unavailable Primary Care Provider [...] of hip, No family history of Sudden /[place] under age 55, No family history of [...]
== END 2025-02-10 16:30 | disposition home or self-care (01) ==
LOC: HO.HOP 16:03
PROVIDERS: PCP Internal Medicine; Visit Provider Clinical Nurse Specialist Psychiatric/Mental Health
DX: F32.1 Major depressive disorder, single episode, moderate (principal); F41.1 Generalized anxiety disorder
CPT/HCPCS: 99214

== ENCOUNTER → 2025-02-11 15:51 | Outpatient (BNV) | payer OTHER, SELFPAY | PROVIDERS: PCP Internal Medicine; Visit Provider Internal Medicine Cardiovascular Disease | DX: R00.0 Tachycardia, unspecified (principal) | CPT/HCPCS: 93010 ==

== ENCOUNTER 2025-02-16 16:21 | Outpatient (AMB) | payer OTHER, SELFPAY ==
--- NOTE | 2025-02-16 16:05 | MHC.OFFVISPS ---
Intake Intake Visit Reasons: f/u consultation Operating Engineer Apprentice Required: No Allergies clonazepam Allergy (Intermediate, Verified 03/04/25 14:11) Facial Swelling adhesive Adverse Reaction (Verified 03/04/25 14:11) rash Medication List - Last Reconciled 02/16/25 by Shaniqua Clark APRN clonazepam (Klonopin) 0.25 mg (1/2 x 0.5 mg) PO TID PRN [Compound Semaglutide IM] duloxetine 60 mg PO DAILY duloxetine (Cymbalta) 30 mg PO DAILY omeprazole 20 mg PO DAILY trazodone 150 mg (1.5 x 100 mg) PO BEDTIME PRN trospium 20 mg PO BID HPI- Psychiatric Chief Complaint: f/u consultation HPI Narrative: pt reports continued depression and anxiety, and panic. Pt had swelling of her lip when took clonazepam- may be allergice to dye or filler blender pills; she is not sure it could be something else she ate. She continues to have conflict with and they are in counseling. Father dx with a tumor on lung. she reports some trouble sleeping. waking in middle of night. medications help with falling asleep but wakes 4-6 times every bight; she denies SI or HI. Anxiety is effecting functioning at home and work. Past Psychiatric History: outpt med trials with PCP sertraline and lexapro not effective. Subjective Subjective Subjective Medication Compliance: Yes Side effects from medications: No Review of Systems Medical Review of Systems: unchanged Mental Status Exam Mental Status Exam Patient Appearance: Well Grooomed and Appropriate Patient Orientation: Person, Place, Time and Situation Level of Consciousness: Awake, Appropriate and Alert Patient Behavior: Appropriate and Cooperative Mood Description: Anxious and Sad Affect Description: Anxious and Sad Patient Cognition Impaired: No Ability to Follow Directions: Good Speech Pattern: Clear Memory Description: Intact Hallucinations: None Delusions: Not Present Thought Process: Intact and Goal Oriented Thought Content: positive for Intact and positive for Goal Oriented Judgement: Fair Telehealth Telehealth Telehealth Platform: Other (please specify) ([email or web address]) Location of provider rendering services: practice address Location of patient: address on file Patient Identification confirmed using: Name, : Yes Telehealth method: video Patient verbally consented to treatment: Yes Patient verbally consented to billing insurance company: Yes Patient informed of any privacy concerns related to visit: Yes Minutes spent on Phone/Video with Pt.: 25 Assessment and Plan Assessment & Plan (1) Generalized anxiety disorder: Status: Acute Code(s): F41.1 - Generalized anxiety disorder (2) Major depressive disorder, single episode, moderate: Status: Acute Code(s): F32.1 - Major depressive disorder, single episode, moderate Medications: New lorazepam (Ativan) 1 mg PO BID PRN 60 tabs 0RF anxiety Discontinued clonazepam Discontinued Reason: Doctor's Order 0.25 mg (1/2 x 0.5 mg) PO TID PRN 45 tabs 2RF anxiety Counseling and coordination of Care Pt. Self Management counseling: Mod caffeine/ETOH intake, Muscle relaxation, Nutrition education and improvement, Sleep hygiene and General coping skills Medication management counseling: Effectiveness, Side effects, Dosing range, Duration, Drug interaction and Adherence Diagnosis and Prognosis Counseling: Accuracy of diagnosis, Prognosis over time, Impact of diagnosis on life functions, Impact of family relationship, Problematic behaviors secondary to diagnosis and Adequacy of current interventions Details: I spent 30 minutes reviewing the record, seeing the patient and documenting in the medical record. Counseling provided to the patient/caregiver as outlined below. Addressed patient/caregiver concerns regarding current medication regime including effective adherence. Addressed patient/caregiver concerns regarding diagnosis and prognosis including accuracy of diagnosis, prognosis over time, impact of diagnosis. Addressed patient/caregiver concerns regarding impact of recent stressors. [facility] Medical History (Updated 03/04/25 @ 14:36 by Cherelle Aragon MD) Heartburn Skin cancer screening Recurrent nephrolithiasis Obesity Generalized anxiety disorder Cat bite of hand Hx of abnormal cervical Pap smear History of nephrolithiasis Surgical History (Updated 04/02/24 @ 11:30 by Cherelle Aragon MD) History of lithotripsy History of tubal ligation Hx of section Hx of dilation and curettage Family History (Updated 04/02/24 @ 11:32 by Cherelle Aragon MD) Father Substance use disorder Alcoholism Paternal Aunt Breast cancer Melanoma Mother Thyroid condition Social History (Updated 04/02/24 @ 11:34 by Cherelle Aragon MD) Housing: House Patient Tobacco Use Status: Former Tobacco user Tobacco use type: Cigarette e-Cigarette/Vaping Use: Never Used Substance Use Type: Marijuana service: No Current occupational status: employed 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
--- OUTSIDE RECORDS SUMMARY | 2025-02-16 16:24 | XMS_ITS | Clinical Summary ---
Author Organization [facility] Address [address] [place] [phone] Phone Care Team Providers Care Visual Coordinator Name Role Phone Unavailable Primary Care Provider [...] of hip, No family history of Sudden /[place] under age 55, No family history of [...]
== END 2025-02-16 16:22 | disposition home or self-care (01) ==
LOC: HO.HOP 16:21
PROVIDERS: PCP Internal Medicine; Visit Provider Clinical Nurse Specialist Psychiatric/Mental Health
DX: F41.1 Generalized anxiety disorder (principal); F32.1 Major depressive disorder, single episode, moderate
CPT/HCPCS: 99214

== ENCOUNTER 2025-03-04 13:18 | Outpatient (AMB) | payer OTHER, SELFPAY ==
[2025-03-04 14:10] VITALS: BP 102/78; PULSE 111; RESP 16; TEMP 36.7; O2SAT 98; BMI 40.0
--- NOTE | 2025-03-04 14:10 | A.OFFPC_ITS ---
Vital Signs 03/04/25 14:10 Height 4 ft 11 in Weight 198 lb BMI 40.0 BP 102/78 Blood Pressure Location Lt brachial Position Sitting Respiration 16 Pulse 111 H Pulse Source Pulse Oximeter Temp 98.1 F Temp Source Oral Pulse Oximetry (%) 98 Oxygen Delivery Method Room Air Intake Visit Reasons: refill omeprazole Intake Note: Pt is here today to request a refill on her omeprazole Allergies clonazepam Allergy (Intermediate, Verified 03/16/25 18:51) Facial Swelling adhesive Adverse Reaction (Verified 03/16/25 18:51) rash Medication List - Last Reconciled 03/16/25 by Cherelle Aragon MD alprazolam (Xanax) 0.5 mg PO BID PRN [Compound Semaglutide IM] duloxetine 120 mg (2 x 60 mg) PO DAILY famotidine 40 mg PO BEDTIME lorazepam (Ativan) 1 mg PO BID PRN omeprazole 20 mg PO DAILY trazodone 150 mg (1.5 x 100 mg) PO BEDTIME PRN trospium 20 mg PO BID Tobacco use date assessed: 03/04/25 Dental Screening Dental Screen Date: 03/04/25 Did you have a dental visit in the last 12 months?: Yes Did you have a dental problem in the last 6 months where you did not have access to dental care?: Yes Was dental information given to patient?: Patient has dentist HPI refill omeprazole HPI Details - The patient is a 39-year-old female pr esenting with chronic heartburn and anxiety management. - She reports chronic heartburn for over a year, initially intermittent but now requiring daily management with omeprazole. - Symptoms include reflux reaching the b ack of the throat and a sensation of incomplete esophageal clearance, attributed to a diagnosed hiatal hernia. - The patient experiences persistent anx iety, unrelieved by current medications, and is exploring potential ADHD symptoms with her mental health provider. - Allergies to adhesive and clonazepam h ave been noted, impacting previous treatment options. [facility] Medical History (Updated 03/04/25 @ 14:36 by Cherelle Aragon MD) Heartburn Skin cancer screening Recurrent nephrolithiasis Obesity Generalized anxiety disorder Cat bite of hand Hx of abnormal cervical Pap smear History of nephrolithiasis Surgical History History of lithotripsy History of tubal ligation Hx of section Hx of dilation and curettage Family History Father Substance use disorder Alcoholism Paternal Aunt Breast cancer Melanoma Mother Thyroid condition Social History Housing: House Patient Tobacco Use Status: Former Tobacco user Tobacco use type: Cigarette e-Cigarette/Vaping Use: Never Used Substance Use Type: Marijuana service: No Current occupational status: employed 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 1. Little interest or pleasure in doing things: several days 2. Feeling down, depressed, or hopeless: several days 3. Trouble falling or staying asleep, or sleeping too much: more than half the days 4. Feeling tired or having little energy: several days 5. Poor appetite or overeating: not at all 6. Feeling bad about yourself - or that you are a failure or have let yourself or your family down: several days 7. Trouble concentrating on things, such as reading the newspaper or watching television: several days 8. Moving or speaking so slowly that other people could have noticed. Or the opposite - being so fidgety or restless that you have been moving around a lot more than usual: not at all 9. Thoughts that you would be better off or of hurting yourself in some way: not at all Total score: 7 Depression Screening Interpretation: Positive (Followed by psychiatry, sees Shaniqua Dubose) Depression Screening Follow-up: Existing condition, In treatment and Community Mental Health Worker F/U Depression Screening Done: Yes 95699 - PHQ-9 Billing: Yes Source: Developed by Drs. Jared Bates, Rufina Mendez, Juan F Yañez and colleagues, with an educational dee dee from [employer]. Thrive Questionnaire Date Thrive assessed: 03/04/25 I am a: Patient What is your living situation today?: I have a steady place to live Within the past 12 months, did the food you bought not last and you didn't have the money to get more?: Never true Within the past 12 months, did you worry whether your food would run out before you got money to buy more?: Never true Do you have trouble paying for medicines?: I choose not to answer this question Do you have trouble getting transportation to medical appointments?: No Do you have trouble paying your heating and electricity bill?: I choose not to answer this question Do you have trouble taking care of your child, family member or friend?: No Do you have trouble with day-to-day activities such as bathing, preparing meals, shopping, managing finances, etc.?: No Are you currently unemployed and looking for a job?: I choose not to answer this question Are you interested in more education?: I choose not to answer this question Please select the resources that you would like help with: None Currently or been in a relationship where the following occur: No concerns reported THRIVE Score: 0 AUDIT C Alcohol Use Questionnaire (AUDIT-C) 1. How often do you have a drink containing alcohol?: 2-3 times a week Total Score: 3 Score Reviewed/Action Taken: Yes CATHY-7 AMB Questionnaire CATHY-7 Date CATHY - 7 assessed: 03/04/25 Feeling nervous, anxious, or on edge: 2 = More than half the days Not being able to stop or control worryin = More than half the days Worrying too much about different things: 2 = More than half the days Trouble relaxin = Several days Being so restless that it is hard to sit still: 1 = Several days Becoming easily annoyed or irritable: 2 = More than half the days Feeling afraid as if something awful might happen: 2 = More than half the days Total CATHY-7 score (0-4 normal; 5-9 mild; 10-14 moderate; 15-21 severe): 12 Source: Developed by Drs. Jared Bates, Rufina Mendez, Juan F Yañez and colleagues, with an educational dee dee from [employer]. CATHY-7 Assessment Billing CATHY-7 Assessment Tool: CATHY-7 Assessment 81972 Review of Systems Const All systems reviewed & are unremarkable except as noted in HPI and below Physical exam (Primary Care) Vital Signs: Last Vital Signs Temp 98.1 F 03/04/25 14:10 Pulse 111 H 03/04/25 14:10 Resp 16 03/04/25 14:10 BP 102/78 03/04/25 14:10 Pulse Ox 98 03/04/25 14:10 Oxygen Delivery Method Room Air 03/04/25 14:10 BMI result Body Mass Index 40.0 Tobacco/Smoking Status: Tobacco use Status Tobacco use date assessed 03/04/25 03/04/25 14:13 Patient Tobacco Use Status Former Tobacco user 03/04/25 14:13 Tobacco use type Cigarette 03/04/25 14:13 e-Cigarette/Vaping Use Never Used 03/04/25 14:13 PHQ-9: PHQ-9 Score PHQ-9: Total score 7 03/04/25 14:13 Depression Screening Interpretation: Positive (Followed by psychiatry, lala Dubose) Depression Screening Follow-up: Existing condition, In treatment and Community Mental Health Worker F/U Thrive Assessment: Date of Thrive Assessment Date Thrive assessed 03/04/25 03/04/25 14:13 Currently or been in a relationship where the following occur: No concerns reported Const General: no acute distress and alert Orientation/consciousness: patient oriented x3 [facility] General nose exam: Normal external nose present Mouth: Normal oral and palatal mucosa present, oropharynx normal and moist mucous membranes Eyes General: appearance normal, both eyes and all related structures Neck Neck: Yes full ROM, Yes no lymphadenopathy and Yes supple Resp Effort & Inspection: normal respiratory effort and able to speak in complete sentences Auscultation: clear to auscultation bilaterally Cardio Rate: regular rate Rhythm: regular rhythm Heart sounds: S1 normal heart sound present and S2 normal heart sound present GI Palpation (GI): Soft to palpation, nontender and no masses Auscultation: normal bowel sounds Back/Spine/Pelvis Back: No back tenderness Neuro General: patient oriented x3, gait normal, tone normal, moves all extremities, Normal light touch and pain sensation and no focal motor deficits Cranial nerves: Yes CN's II-XII intact bilaterally Cognition (Neuro): normal cognition Extrem General: Yes full ROM, Yes no joint enlargement, Yes no clubbing, cyanosis or edema and Yes no calf tenderness Psych Appearance: grossly normal and well kempt Mental Status: mental status grossly normal Speech and movement: Normal speech and movement present Affect: normal affect Coding Level of Care Code Est Pt Level 4 (94477) Diagnoses Heartburn R12 Additional Codes CATHY-7 Assessment Billing - CATHY-7 Assessment Tool: CATHY-7 Assessment 11362 ([id number]) PHQ-9 - 55077 - PHQ-9 Billing: Yes ([id number]) Assessment & Plan Assessment & Plan (1) Heartburn: Code(s): R12 - Heartburn Category: Medical Plan: Ordered an upper GI series, trial of taking famotidine instead of omeprazole 40 mg at bedtime as needed and continue taking omeprazole 20 mg once a day in a.m.. With at least 30 minutes before eating. Avoidance of triggers for heartburn. Return to clinic after upper GI series done Orders: Orders [place] upper GI series 03/04/25 R12 - Heartburn Medications: New famotidine 40 mg PO BEDTIME 90 tabs 0RF R12 - Heartburn Changed From omeprazole 20 mg PO DAILY 90 caps 0RF To omeprazole Take at least 30 minutes before eating 20 mg PO DAILY 30 caps 0RF
--- OUTSIDE RECORDS SUMMARY | 2025-03-04 14:11 | XMS_ITS | Clinical Summary ---
Author Organization [facility] Address [address] [place] [phone] Phone Care Team Providers Care Enamel Drier Name Role Phone Unavailable Primary Care Provider [...] of hip, No family history of Sudden /MO under age 55, No family history of [...] of 2 - 13+ 2-dose series) 2000 HPV Vaccines (1 - 3-dose SCDM series) 2014 DTaP,Tdap,and Td Vaccines (7 - Td or Tdap) 02/14/2023 02/14/2013, 12/21/2007, 04/04/2000, Additional history exists COVID-19 Vaccine ( season) 2024 07/20/2021, 11/27/2020, 11/06/2020 Influenza Vaccines (#1) 2025 05/13/20 20, 06/05/2019, 04/26/2018, Additional history exists HIB Vaccines Completed 03/04/1991 IPV Vaccines Completed 08/27/1992, 02/14, 08/17/1989, Additional history exists MMR Vaccines Completed 02/23/1999, 08/17/1989 Hepatitis B Vaccines Completed 04/04/2000, 12/05/1999, 02/23/1999 Meningococcal Vaccine Completed 12/01/2005 Hepatitis A Vaccines Aged Out No long er eligible based on patient's age to complete this topic Men B Vaccine Aged Out No longer elig ible based on patient's age to complete this topic Pneumococcal Vaccine Aged Out No long er eligible based on patient's age to complete this topic
== END 2025-03-04 14:52 | disposition home or self-care (01) ==
PROVIDERS: PCP Internal Medicine; Visit Provider Internal Medicine
DX: R12 Heartburn (principal)

== ENCOUNTER → 2025-03-04 13:18 | Outpatient (BNVA) | payer OTHER, SELFPAY | PROVIDERS: PCP Internal Medicine; Visit Provider Internal Medicine | DX: R12 Heartburn (principal); F41.9 Anxiety disorder, unspecified | CPT/HCPCS: 96127 ==

== ENCOUNTER 2025-03-12 09:28 | Outpatient (AMB) | payer OTHER, SELFPAY ==
--- NOTE | 2025-03-12 09:05 | A.OFFPSYCH_ITS ---
Intake Intake Visit Reasons: f/u consultation Floor Director Required: No Allergies clonazepam Allergy (Intermediate, Verified 03/04/25 14:11) Facial Swelling adhesive Adverse Reaction (Verified 03/04/25 14:11) rash Medication List - Last Reconciled 03/12/25 by Shaniqua Clark APRN [Compound Semaglutide IM] duloxetine 60 mg PO DAILY famotidine 40 mg PO BEDTIME lorazepam (Ativan) 1 mg PO BID PRN omeprazole 20 mg PO DAILY trazodone 150 mg (1.5 x 100 mg) PO BEDTIME PRN trospium 20 mg PO BID HPI- Psychiatric Chief Complaint: f/u consultation HPI Narrative: pt reports continued depression and anxiety. Pt reports she resumed the cymbalta 120mg daily. she reports taking the lorazepam 1mg bid but still feels anxious. she reports feeling very tired for past 2-3 days. She continues to have conflict with and they are in counseling. Father dx with a tumor on lung. she reports she is sleeping and tries to take the trazodone before 10pm so she isn't so tired the next day. she denies SI or HI. Anxiety is effecting functioning at home and work. Past Psychiatric History: outpt med trials with PCP sertraline and lexapro not effective. Subjective Subjective Subjective Medication Compliance: Yes Side effects from medications: Yes (sedation) Review of Systems Medical Review of Systems: unchanged Mental Status Exam Mental Status Exam Patient Appearance: Well Grooomed and Appropriate Patient Orientation: Person, Place, Time and Situation Level of Consciousness: Appropriate and Alert Patient Behavior: Appropriate and Cooperative Mood Description: Anxious and Sad Affect Description: Anxious and Sad Patient Cognition Impaired: No Ability to Follow Directions: Good Speech Pattern: Clear Memory Description: Intact Hallucinations: None Delusions: Not Present Thought Process: Intact and Goal Oriented Thought Content: positive for Intact and positive for Goal Oriented Judgement: Fair Telehealth Telehealth Telehealth Platform: Other (please specify) ([email or web address]) Location of provider rendering services: practice address Location of patient: other (workplace in the counts include 234 beds at the [facility] ) Patient Identification confirmed using: Name, : Yes Telehealth method: video Patient verbally consented to treatment: Yes Patient verbally consented to billing insurance company: Yes Patient informed of any privacy concerns related to visit: Yes Minutes spent on Phone/Video with Pt.: 20 Assessment and Plan Assessment & Plan (1) Generalized anxiety disorder: Status: Acute Code(s): F41.1 - Generalized anxiety disorder (2) Major depressive disorder, single episode, moderate: Status: Acute Code(s): F32.1 - Major depressive disorder, single episode, moderate Plan Lorazepam is sedating and not helping with anxiety so will taper lorazepam by 0.5mg every 5 days and use the xanax for breakthrough panic/severe anxiety stay hydrated drink gatorade throughout the day with water has follow up in 10-14 days Medications: New alprazolam (Xanax) 0.5 mg PO BID PRN 40 tabs 0RF panic Changed From duloxetine 60 mg PO DAILY 90 caps 1RF To duloxetine 120 mg (2 x 60 mg) PO DAILY 180 caps 1RF Counseling and coordination of Care Pt. Self Management counseling: Maintenance-social rhythm, Mod caffeine/ETOH intake, Nutrition education and improvement and Sleep hygiene Medication management counseling: Effectiveness, Side effects, Dosing range, Duration and Drug interaction Diagnosis and Prognosis Counseling: Prognosis over time, Impact of diagnosis on life functions, Impact of family relationship, Problematic behaviors secondary to diagnosis and Adequacy of current interventions Details: I spent 28 minutes reviewing the record, seeing the patient and documenting in the medical record. Counseling provided to the patient/caregiver as outlined below. Addressed p atient/caregiver concerns regarding current medication regime including effective adherence. Addressed patient/caregiver concerns regarding diagnosis and prognosis including accuracy of diagnosis, prognosis over time, impact of diagnosis. Addressed patient/caregiver concerns regarding impact of recent stressors. [facility] Medical History (Updated 03/04/25 @ 14:36 by Cherelle Aragon MD) Heartburn Skin cancer screening Recurrent nephrolithiasis Obesity Generalized anxiety disorder Cat bite of hand Hx of abnormal cervical Pap smear History of nephrolithiasis Surgical History (Updated 04/02/24 @ 11:30 by Cherelle Aragon MD) History of lithotripsy History of tubal ligation Hx of section Hx of dilation and curettage Family History (Updated 04/02/24 @ 11:32 by Cherelle Aragon MD) Father Substance use disorder Alcoholism Paternal Aunt Breast cancer Melanoma Mother Thyroid condition Social History (Updated 04/02/24 @ 11:34 by Cherelle Aragon MD) Housing: House Patient Tobacco Use Status: Former Tobacco user Tobacco use type: Cigarette e-Cigarette/Vaping Use: Never Used Substance Use Type: Marijuana service: No Current occupational status: employed 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
--- OUTSIDE RECORDS SUMMARY | 2025-03-12 10:31 | XMS_ITS | Clinical Summary ---
Author Organization [facility] Address [address] [place] [phone] Phone Care Team Providers Care Executive Asst Name Role Phone Unavailable Primary Care Provider [...]
--- OUTSIDE RECORDS SUMMARY | 2025-03-12 10:32 | XMS_ITS | Encounter Summary ---
Author Organization [facility] Address [address] [place] [address] Phone Care Team Providers Care Neighborhood Worker Name Role Phone Kamilah Richardson MD Primary Care Provider [phone] Encounter Details Date Type Department Care Team (Late st Contact Info) Description 03/01/2017 Conversion Encounter [facility] - [address] [address] Social History Tobacco Use Types Packs/Day Years [...] on filedocumented in this encounter Care Teams Neighborhood Worker Relationship Specialty Start Date End Date Kamilah Richardson MD [address] [place] [id number] PCP - General 02/23/17 10/26/22 documented as of this encounter
== END 2025-03-12 09:29 | disposition home or self-care (01) ==
LOC: HO.HOP 09:28
PROVIDERS: PCP Internal Medicine; Visit Provider Clinical Nurse Specialist Psychiatric/Mental Health
DX: F41.1 Generalized anxiety disorder (principal); F32.1 Major depressive disorder, single episode, moderate
CPT/HCPCS: 99213

== ENCOUNTER 2025-04-02 16:54 | Outpatient (AMB) | payer OTHER, SELFPAY ==
--- NOTE | 2025-04-02 16:40 | A.OFFPSYCH_ITS ---
Intake Intake Visit Reasons: f/u consultation Storage Battery Charger Required: No Allergies clonazepam Allergy (Intermediate, Verified 03/16/25 18:51) Facial Swelling adhesive Adverse Reaction (Verified 03/16/25 18:51) rash Medication List - Last Reconciled 04/02/25 by Shaniqua Clark APRN alprazolam (Xanax) 0.5 mg PO BID PRN [Compound Semaglutide IM] duloxetine 120 mg (2 x 60 mg) PO DAILY famotidine 40 mg PO BEDTIME lorazepam (Ativan) 1 mg PO BID PRN omeprazole 20 mg PO DAILY trazodone 150 mg (1.5 x 100 mg) PO BEDTIME PRN trospium 20 mg PO BID HPI- Psychiatric Chief Complaint: f/u consultation HPI Narrative: pt seen for follow re: depression, anxiety and concerns about focus and attention. Pt reports doing well with cymbalta 120mg daily. she reports lorazepam doesn't help much if she has panic attack and makes her very tired. She reports improvement and less confllict with ; they are in counseling and its helping. she denies SI or HI. She reports her problems with attention and focus are lifelong but she has been able to cope; she has always had to work harder than her peers to get things done especially when in school but even now with housework and staying organized at work. she completeed the adult ADHD self report scale and scored positive for 5/6 core symptoms of ADHD and 10 out of 12 supporting additional symptoms for a score of 15 (anything over 13 indicates likley dx of ADHD) Past Psychiatric History: outpt med trials with PCP sertraline and lexapro not effective. Subjective Subjective Subjective Medication Compliance: Yes Side effects from medications: No Review of Systems Medical Review of Systems: unchanged Mental Status Exam Mental Status Exam Patient Appearance: Well Grooomed and Appropriate Patient Orientation: Person, Place, Time and Situation Level of Consciousness: Appropriate and Alert Patient Behavior: Appropriate and Cooperative Mood Description: Appropriate and Anxious Affect Description: Appropriate and Anxious Patient Cognition Impaired: No Ability to Follow Directions: Good Speech Pattern: Clear Memory Description: Intact Hallucinations: None Delusions: Not Present Thought Process: Intact and Goal Oriented Thought Content: positive for Intact and positive for Goal Oriented Judgement: Good Telehealth Telehealth Telehealth Platform: [facility] Location of provider rendering services: practice address Location of patient: address on file Patient Identification confirmed using: Name, : Yes Telehealth method: video Patient verbally consented to treatment: Yes Patient verbally consented to billing insurance company: Yes Patient informed of any privacy concerns related to visit: Yes Minutes spent on Phone/Video with Pt.: 25 Assessment and Plan Assessment & Plan (1) Generalized anxiety disorder: Status: Acute Code(s): F41.1 - Generalized anxiety disorder (2) Major depressive disorder, single episode, moderate: Status: Acute Code(s): F32.1 - Major depressive disorder, single episode, moderate (3) ADHD (attention deficit hyperactivity disorder), inattentive type: Status: Acute Code(s): F90.0 - Attention-deficit hyperactivity disorder, predominantly inattentive type Plan start trial of wellbutrin 75mg in am daily for adult ADHD and depression taper lorazepam by 0.5mg every 5 days and use the xanax for breakthrough panic/severe anxiety stay hydrated drink gatorade throughout the day with water follow up in 4-6 weeks Medications: New bupropion HCl 75 mg PO DAILY 30 tabs 0RF Discontinued famotidine Discontinued Reason: Patient Refused 40 mg PO BEDTIME 90 tabs 0RF R12 - Heartburn lorazepam (Ativan) Discontinued Reason: Doctor's Order 1 mg PO BID PRN 60 tabs 0RF anxiety Counseling and coordination of Care Pt. Self Management counseling: Maintenance-social rhythm, Mod caffeine/ETOH intake, Nutrition education and improvement and Sleep hygiene Medication management counseling: Effectiveness, Side effects, Dosing range, Duration and Drug interaction Diagnosis and Prognosis Counseling: Prognosis over time, Impact of diagnosis on life functions, Impact of family relationship, Problematic behaviors secondary to diagnosis and Adequacy of current interventions Details: I spent [] minutes reviewing the record, seeing the patient and documenting in the medical record. Counseling provided to the patient/caregiver as outlined below. Addressed patient/caregiver concerns regarding current medication regime including effective adherence. Addressed patient/caregiver concerns regarding diagnosis and prognosis including accuracy of diagnosis, prognosis over time, impact of diagnosis. Addressed patient/caregiver concerns regarding impact of recent stressors. [facility] Medical History (Updated 04/06/25 @ 13:07 by Shaniqua Clark APRN) Heartburn Skin cancer screening Recurrent nephrolithiasis Obesity Generalized anxiety disorder Cat bite of hand Hx of abnormal cervical Pap smear History of nephrolithiasis Surgical History History of lithotripsy History of tubal ligation Hx of section Hx of dilation and curettage Family History Father Substance use disorder Alcoholism Paternal Aunt Breast cancer Melanoma Mother Thyroid condition Social History Housing: House Patient Tobacco Use Status: Former Tobacco user Tobacco use type: Cigarette e-Cigarette/Vaping Use: Never Used Substance Use Type: Marijuana service: No Current occupational status: employed 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
--- OUTSIDE RECORDS SUMMARY | 2025-04-02 17:26 | XMS_ITS | Clinical Summary ---
Author Organization [facility] Address [address] [place] [phone] Phone Care Team Providers Care Care Aide Name Role Phone Unavailable Primary Care Provider [...] 04/04/2000, Additional history exists Influenza Vaccines (#1) 2025 05/13/20, 06/05/2019, 04/26/2018, Additional history exists COVID-19 Vaccine ( season) 2025 07/20/2021, 11/27/2020, 11/06/2020 HIB Vaccines Completed 03/04/1991 [...]
--- OUTSIDE RECORDS SUMMARY | 2025-04-02 17:26 | XMS_ITS | Encounter Summary ---
Author Organization [facility] Address [address] [place] [phone] Phone Care Team Providers Care Tape Deck Installer Name Role Phone Kamilah Richardson MD Primary Care Provider [phone] Encounter Details Date Type Department Care Team (Late st Contact Info) Description 03/01/2017 Conversion Encounter [facility] - [address] [address] Social History Tobacco Use Types Packs/Day Years [...] on filedocumented in this encounter Care Teams Tape Deck Installer Relationship Specialty Start Date End Date Kamilah Richardson MD [address] [place] [id number] PCP - General 02/23/17 10/26/22 documented as of this encounter
== END 2025-04-02 16:55 | disposition home or self-care (01) ==
LOC: HO.HOP 16:54
PROVIDERS: PCP Internal Medicine; Visit Provider Clinical Nurse Specialist Psychiatric/Mental Health
DX: F41.1 Generalized anxiety disorder (principal); F32.1 Major depressive disorder, single episode, moderate; F90.0 Attention-deficit hyperactivity disorder, predominantly inattentive type
CPT/HCPCS: 99214

== ENCOUNTER 2025-05-14 15:29 | Outpatient (AMB) | payer OTHER, SELFPAY ==
--- NOTE | 2025-05-14 15:38 | A.OFFPSYCH_ITS ---
Intake Intake Visit Reasons: f/u consultation Sustainability Project Coordinator Required: No Allergies clonazepam Allergy (Intermediate, Verified 03/16/25 18:51) Facial Swelling adhesive Adverse Reaction (Verified 03/16/25 18:51) rash Medication List - Last Reconciled 05/14/25 by Shaniqua Clark APRN alprazolam (Xanax) 0.5 mg PO BID PRN bupropion HCl 75 mg PO DAILY [Compound Semaglutide IM] duloxetine 120 mg (2 x 60 mg) PO DAILY omeprazole 20 mg PO DAILY PRN trazodone 150 mg (1.5 x 100 mg) PO BEDTIME PRN trospium 20 mg PO BID HPI- Psychiatric Chief Complaint: f/u consultation HPI Narrative: pt seen for follow re: depression, anxiety and concerns about focus and attention. Pt reports doing well with cymbalta 120mg daily. She reports improvement and less confllict with ; they are in counseling and its helping. she denies SI or HI PHQ(=8 and GAD7=9. Pt reports some improvement with buproprion; tolerating it without side effects. She feels it helps with attention and focus alittle but she still struggles at work and at home at times. Past Psychiatric History: outpt med trials with PCP sertraline and lexapro not effective. Subjective Subjective Medication Compliance: Yes Side effects from medications: No Review of Systems Medical Review of Systems: unchanged Mental Status Exam Mental Status Exam Patient Appearance: Well Grooomed and Appropriate Patient Orientation: Person, Place, Time and Situation Level of Consciousness: Appropriate and Alert Patient Behavior: Appropriate and Cooperative Mood Description: Appropriate and Anxious Affect Description: Appropriate and Anxious Patient Cognition Impaired: No Ability to Follow Directions: Good Speech Pattern: Clear Memory Description: Intact Hallucinations: None Delusions: Not Present Thought Process: Intact and Goal Oriented Thought Content: positive for Intact and positive for Goal Oriented Judgement: Good Assessment and Plan Assessment & Plan (1) Generalized anxiety disorder: Status: Acute Code(s): F41.1 - Generalized anxiety disorder (2) Major depressive disorder, single episode, moderate: Status: Acute Code(s): F32.1 - Major depressive disorder, single episode, moderate (3) ADHD (attention deficit hyperactivity disorder), inattentive type: Status: Acute Code(s): F90.0 - Attention-deficit hyperactivity disorder, predominantly inattentive type Plan Increase wellbutrin to 75mg in am and 37.5mg at noon daily for adult ADHD and depression xanax for breakthrough panic/severe anxiety zolpidem 5mg at bedtime prn sleep stay hydrated drink gatorade throughout the day with water follow up in 4-6 weeks Medications: New zolpidem (Ambien) 5 mg PO BEDTIME 30 tabs 2RF Changed From bupropion HCl 75 mg PO DAILY 30 tabs 0RF To bupropion HCl 75 mg orally take 1 tab in am and 1/2 tab at noon; 45 tabs 3RF Refilled alprazolam (Xanax) 0.5 mg PO BID PRN 40 tabs 0RF panic Counseling and coordination of Care Pt. Self Management counseling: Maintenance-social rhythm, Mod caffeine/ETOH intake, Nutrition education and improvement and Sleep hygiene Medication management counseling: Effectiveness, Side effects, Dosing range, Duration and Drug interaction Diagnosis and Prognosis Counseling: Prognosis over time, Impact of diagnosis on life functions, Impact of family relationship, Problematic behaviors secondary to diagnosis and Adequacy of current interventions Details: I spent 35 minutes reviewing the record, seeing the patient and documenting in the medical record. Counseling provided to the patient/caregiver as outlined below. Addressed patient/caregiver concerns regarding current medication regime including effective adherence. Addressed patient/caregiver concerns regarding diagnosis and prognosis including accuracy of diagnosis, prognosis over time, impact of diagnosis. Addressed patient/caregiver concerns regarding impact of recent stressors. [facility] Medical History (Updated 04/22/25 @ 10:47 by Shaniqua Clark APRN) Heartburn Skin cancer screening Recurrent nephrolithiasis Obesity Generalized anxiety disorder Cat bite of hand Hx of abnormal cervical Pap smear History of nephrolithiasis Surgical History History of lithotripsy History of tubal ligation Hx of section Hx of dilation and curettage Family History Father Substance use disorder Alcoholism Paternal Aunt Breast cancer Melanoma Mother Thyroid condition Social History Housing: House Patient Tobacco Use Status: Former Tobacco user Tobacco use type: Cigarette e-Cigarette/Vaping Use: Never Used Substance Use Type: Marijuana service: No Current occupational status: employed 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
--- OUTSIDE RECORDS SUMMARY | 2025-05-14 18:00 | XMS_ITS | Encounter Summary ---
Author Organization [facility] Address [address] [place] [phone] Phone Care Team Providers Care Elevators Inspector Name Role Phone Kamilah Richardson MD Primary Care Provider [phone] Encounter Details Date Type Department Care Team (Late st Contact Info) Description 03/01/2017 Conversion Encounter [facility] - [address] [address] Social History Tobacco Use Types Packs/Day Years [...] on filedocumented in this encounter Care Teams Elevators Inspector Relationship Specialty Start Date End Date Kamilah Richardson MD [address] [place] [phone] PCP - General 02/23/17 10/26/22 documented as of this encounter
--- OUTSIDE RECORDS SUMMARY | 2025-05-14 18:00 | XMS_ITS | Clinical Summary ---
Author Organization [facility] Address [address] [place] [phone] Phone Care Team Providers Care Crop Consultant Name Role Phone Unavailable Primary Care Provider [...] of hip, No family history of Sudden /ME under age 55, No family history of [...]
== END 2025-05-14 16:22 | disposition home or self-care (01) ==
LOC: HO.HOP 15:29
PROVIDERS: PCP Internal Medicine; Visit Provider Clinical Nurse Specialist Psychiatric/Mental Health
DX: F41.1 Generalized anxiety disorder (principal); F32.1 Major depressive disorder, single episode, moderate; F90.0 Attention-deficit hyperactivity disorder, predominantly inattentive type
CPT/HCPCS: 99214

== ENCOUNTER 2025-06-25 10:08 | Outpatient (AMB) | payer OTHER, SELFPAY ==
--- NOTE | 2025-06-25 09:21 | MHC.OFFVISPS ---
Intake Intake Visit Reasons: f/u consultation Vice President Of Customer Service Required: No Allergies clonazepam Allergy (Intermediate, Verified 03/16/25 18:51) Facial Swelling adhesive Adverse Reaction (Verified 03/16/25 18:51) rash Medication List - Last Reconciled 06/25/25 by Shaniqua Clark APRN alprazolam (Xanax) 0.5 mg PO BID PRN bupropion HCl 75 mg orally take 1 tab in am and 1/2 tab at noon; [Compound Semaglutide IM] duloxetine 120 mg (2 x 60 mg) PO DAILY omeprazole 20 mg PO DAILY PRN trazodone 150 mg (1.5 x 100 mg) PO BEDTIME PRN trospium 20 mg PO BID zolpidem (Ambien) 5 mg PO BEDTIME HPI- Psychiatric Chief Complaint: f/u consultation HPI Narrative: pt seen via telehealth for follow re: depression, anxiety and concerns about focus and attention. Pt reports she feels much better with wellbutrin; she is much more focused and can concentrate better; she can stay on task more easily; she is still fidgety in afternoon; she forgot to increase the wellbutrin by adding half tablet at noon. Pt reports doing well with cymbalta 90 mg daily. She reports improvement and less conflict with ; they are in counseling and its helping. she denies SI or HI. She reports the ambien does not help with sleep at all so she resumed the trazdone; denies side effects. Past Psychiatric History: outpt med trials with PCP sertraline and lexapro not effective. Subjective Subjective Medication Compliance: Yes Side effects from medications: No Review of Systems Medical Review of Systems: unchanged Mental Status Exam Mental Status Exam Patient Appearance: Well Grooomed and Appropriate Patient Orientation: Person, Place, Time and Situation Level of Consciousness: Appropriate and Alert Patient Behavior: Appropriate and Cooperative Mood Description: Appropriate and Anxious Affect Description: Appropriate and Anxious Patient Cognition Impaired: No Ability to Follow Directions: Good Speech Pattern: Clear Memory Description: Intact Hallucinations: None Delusions: Not Present Thought Process: Intact and Goal Oriented Thought Content: positive for Intact and positive for Goal Oriented Judgement: Good Telehealth Telehealth Telehealth Platform: [facility] Location of provider rendering services: practice address Location of patient: other (workplace in the [facility] ) Patient Identification confirmed using: Name, : Yes Telehealth method: video Patient verbally consented to treatment: Yes Patient verbally consented to billing insurance company: Yes Patient informed of any privacy concerns related to visit: Yes Minutes spent on Phone/Video with Pt.: 16 Assessment and Plan Assessment & Plan (1) Generalized anxiety disorder: Status: Acute Code(s): F41.1 - Generalized anxiety disorder (2) Major depressive disorder, single episode, moderate: Status: Acute Code(s): F32.1 - Major depressive disorder, single episode, moderate (3) ADHD (attention deficit hyperactivity disorder), inattentive type: Status: Acute Code(s): F90.0 - Attention-deficit hyperactivity disorder, predominantly inattentive type Plan Increase wellbutrin to 75mg in am and 37.5mg at noon daily for adult ADHD and depression xanax for breakthrough panic/severe anxiety stop zolpidem 5mg at bedtime due to ineffective resume trazodone 150mg at bedtime continue duloxetine at 90mg daily stay hydrated drink gatorade throughout the day with water follow up in 4-6 weeks Medications: New duloxetine take 30mg capsule in addition to 60mg capsule daily for total daily dose of 90mg 30 mg PO DAILY 90 caps 1RF Changed From duloxetine 120 mg (2 x 60 mg) PO DAILY 60 caps 1RF To duloxetine 60 mg PO DAILY 90 caps 1RF From trazodone 150 mg (1.5 x 100 mg) PO BEDTIME PRN 75 tabs 2RF sleep To trazodone 200 mg (2 x 100 mg) PO BEDTIME PRN 60 tabs 2RF sleep Discontinued zolpidem (Ambien) Discontinued Reason: Doctor's Order 5 mg PO BEDTIME 30 tabs 2RF Counseling and coordination of Care Pt. Self Management counseling: Maintenance-social rhythm, Mod caffeine/ETOH intake, Nutrition education and improvement and Sleep hygiene Medication management counseling: Effectiveness, Side effects, Dosing range, Duration and Drug interaction Diagnosis and Prognosis Counseling: Prognosis over time, Impact of diagnosis on life functions, Impact of family relationship, Problematic behaviors secondary to diagnosis and Adequacy of current interventions Details: I spent 24 minutes reviewing the record, seeing the patient and documenting in the medical record. Counseling provided to the patient/caregiver as outlined below. Addressed patient/caregiver concerns regarding current medication regime including effective adherence. Addressed patient/caregiver concerns regarding diagnosis and prognosis including accuracy of diagnosis, prognosis over time, impact of diagnosis. Addressed patient/caregiver concerns regarding impact of recent stressors. [facility] Medical History (Updated 04/22/25 @ 10:47 by Shaniqua Clark APRN) Heartburn Skin cancer screening Recurrent nephrolithiasis Obesity Generalized anxiety disorder Cat bite of hand Hx of abnormal cervical Pap smear History of nephrolithiasis Surgical History History of lithotripsy History of tubal ligation Hx of section Hx of dilation and curettage Family History Father Substance use disorder Alcoholism Paternal Aunt Breast cancer Melanoma Mother Thyroid condition Social History Housing: House Patient Tobacco Use Status: Former Tobacco user Tobacco use type: Cigarette e-Cigarette/Vaping Use: Never Used Substance Use Type: Marijuana service: No Current occupational status: employed 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
== END 2025-06-25 10:09 | disposition home or self-care (01) ==
LOC: HO.HOP 10:08
PROVIDERS: PCP Internal Medicine; Visit Provider Clinical Nurse Specialist Psychiatric/Mental Health
DX: F41.1 Generalized anxiety disorder (principal); F32.1 Major depressive disorder, single episode, moderate; F90.0 Attention-deficit hyperactivity disorder, predominantly inattentive type
CPT/HCPCS: 99213

== ENCOUNTER 2025-07-15 08:33 | Outpatient (AMB) | payer OTHER, SELFPAY ==
--- OUTSIDE RECORDS SUMMARY | 2025-07-15 08:35 | XMS_ITS | Encounter Summary ---
Author Organization [facility] Address [address] [place] [phone] Phone Care Team Providers Care Box Toe Maker Name Role Phone Kamilah Richardson MD Primary Care Provider [phone] Encounter Details Date Type Department Care Team (Late st Contact Info) Description 03/01/2017 Conversion Encounter [facility] - [address] [id number] Social History Tobacco Use Types Packs/Day Years [...] on filedocumented in this encounter Care Teams Box Toe Maker Relationship Specialty Start Date End Date Kamilah Richardson MD [address] [place] [id number] PCP - General 02/23/17 10/26/22 documented as of this encounter
--- OUTSIDE RECORDS SUMMARY | 2025-07-15 08:35 | XMS_ITS | Clinical Summary ---
Author Organization [facility] Address [address] [place] [phone] Phone Care Team Providers Care Security Orderly Name Role Phone Unavailable Primary Care Provider [...] of hip, No family history of Sudden /[place] under age 55, No family history of [...]
[2025-07-15 08:54] VITALS: BP 102/70; PULSE 102; TEMP 36.7; O2SAT 98; BMI 39.2
--- NOTE | 2025-07-15 08:54 | A.OFFPC_ITS ---
Vital Signs 07/15/25 08:54 Height 4 ft 11 in Weight 194 lb BMI 39.2 BP 102/70 Blood Pressure Location Lt brachial Position Sitting Pulse 102 H Pulse Source Pulse Oximeter Temp 98.0 F Temp Source Oral Pulse Oximetry (%) 98 Intake Visit Reasons: PE Allergies clonazepam Allergy (Intermediate, Verified 07/15/25 08:54) Facial Swelling adhesive Adverse Reaction (Verified 07/15/25 08:54) rash Medication List - Last Reconciled 07/15/25 by Cherelle Aragon MD alprazolam (Xanax) 0.5 mg PO BID PRN bupropion HCl 75 mg orally take 1 tab in am and 1/2 tab at noon; cholecalciferol (vitamin D3) 25 mcg PO DAILY [Compound Semaglutide 60 units q week] duloxetine 30 mg PO DAILY duloxetine 60 mg PO DAILY omeprazole 20 mg PO DAILY PRN trazodone 200 mg (2 x 100 mg) PO BEDTIME PRN trospium 20 mg PO BID Tobacco use date assessed: 03/04/25 Dental Screening Dental Screen Date: 03/04/25 HPI PE HPI Details The patient is a 39 year old female presenting for a physical exam. She had a partial hysterectomy in July of this year due to abnormal bleeding; her ovaries were retained, and pathology showed no cancer. Her last Pap smear was also in July. For weight management, the patient is on semaglutide 60 units weekly, which she obtains through the [facility] program. Her weight has decreased from 225 lbs to 194 lbs. She experiences intermittent constipation, which she manages with Dulcolax. The patient has a history of anxiety and is followed by Nurse psychiatristShaniqua. She takes duloxetine 90 mg daily, bupropion 75 mg (one in the morning and a half at noon), and trazodone at night for insomnia. She reports work- related anxiety and has been referred for therapy. While trazodone helps with sleep onset, she still wakes periodically during the night, and a sleep study consultation is scheduled for July. She has a history of long-standing acid reflux, managed with daily omeprazole. She missed a scheduled appointment for an upper GI series and will need to reschedule it. She also has a history of overactive bladder since she was younger, which is managed effectively with trospium prescribed by [facility], though it causes dry mouth. Past medical history is notable for kidney stones, which were too small for intervention and are not currently symptomatic. Last year's labs showed low vitamin D, for which she takes 1000 units daily, and a B12 level on the lower end of normal. Her blood pressure has always been on the low side, but she denies any lightheadedness . Family history is significant for a mother with a thyroid issue and an aunt who from triple-negative breast cancer in her early 50s. She is up-to-date on her flu shot, COVID booster, and tetanus shot. She has not yet had a mammogram. 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 [facility] Medical History (Updated 07/15/25 @ 09:36 by Cherelle Aragon MD) Heartburn Skin cancer screening Recurrent nephrolithiasis Obesity Generalized anxiety disorder Cat bite of hand Hx of abnormal cervical Pap smear History of nephrolithiasis Surgical History (Updated 07/19/25 @ 22:45 by Cherelle Aragon MD) History of partial hysterectomy History of lithotripsy History of tubal ligation Hx of section Hx of dilation and curettage Family History Father Substance use disorder Alcoholism Paternal Aunt Breast cancer Melanoma Mother Thyroid condition Social History Housing: House Patient Tobacco Use Status: Former Tobacco user Tobacco use type: Cigarette e-Cigarette/Vaping Use: Never Used Substance Use Type: Marijuana service: No Current occupational status: employed 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 1. Little interest or pleasure in doing things: several days 2. Feeling down, depressed, or hopeless: several days 3. Trouble falling or staying asleep, or sleeping too much: more than half the days 4. Feeling tired or having little energy: several days 5. Poor appetite or overeating: not at all 6. Feeling bad about yourself - or that you are a failure or have let yourself or your family down: several days 7. Trouble concentrating on things, such as reading the newspaper or watching television: several days 8. Moving or speaking so slowly that other people could have noticed. Or the opposite - being so fidgety or restless that you have been moving around a lot more than usual: not at all 9. Thoughts that you would be better off or of hurting yourself in some way: not at all Total score: 7 Depression Screening Interpretation: Positive (Followed by psychiatry, sees Shaniqua Dubose) Depression Screening Follow-up: Existing condition, In treatment and Community Mental Health Worker F/U Depression Screening Done: Yes 19751 - PHQ-9 Billing: Yes Source: Developed by Drs. Jared Bates, Rufina Mendez, Juan F Yñaez and colleagues, with an educational dee dee from [employer]. Thrive Questionnaire Date Thrive assessed: 03/04/25 I am a: Patient What is your living situation today?: I have a steady place to live Within the past 12 months, did the food you bought not last and you didn't have the money to get more?: Never true Within the past 12 months, did you worry whether your food would run out before you got money to buy more?: Never true Do you have trouble paying for medicines?: I choose not to answer this question Do you have trouble getting transportation to medical appointments?: No Do you have trouble paying your heating and electricity bill?: I choose not to answer this question Do you have trouble taking care of your child, family member or friend?: No Do you have trouble with day-to-day activities such as bathing, preparing meals, shopping, managing finances, etc.?: No Are you currently unemployed and looking for a job?: I choose not to answer this question Are you interested in more education?: I choose not to answer this question Currently or been in a relationship where the following occur: No concerns reported THRIVE Score: 0 AUDIT C Alcohol Use Questionnaire (AUDIT-C) 1. How often do you have a drink containing alcohol?: 2-3 times a week Total Score: 3 Score Reviewed/Action Taken: Yes CATHY-7 AMB Questionnaire CATHY-7 Date CATHY - 7 assessed: 03/04/25 Source: Developed by Drs. Jared Bates, Rufina Mendez, Juan F Yañez and colleagues, with an educational dee dee from [employer]. Review of Systems Const Denies body aches, Denies fatigue and Denies fever(s) Eyes Details: sees [facility] , wears reading glasses Denies change in vision ENT Details: Card Denies chest pain, Denies lightheadedness, Denies palpitations and Denies dyspnea Resp Denies chest congestion, Denies cough, Denies dyspnea and Denies wheezing GI Denies abdominal pain, Denies change in bowel habits and Denies heartburn Denies hematuria, Denies urinary frequency, Denies dysuria and Denies urinary urgency Musc Reports no additional complaints Skin/Breast Denies breast pain and Denies breast mass Neuro Reports no additional complaints Psych Reports as per HPI Endo Denies fatigue, Denies polydipsia, Denies polyuria and Denies palpitations Jovan/Lymph Reports no additional complaints Aller/Immun Denies seasonal rhinorrhea and Denies wheezing Physical exam (Primary Care) Vital Signs: Last Vital Signs Temp 98.0 F 07/15/25 08:54 Pulse 102 H 07/15/25 08:54 BP 102/70 07/15/25 08:54 Pulse Ox 98 07/15/25 08:54 BMI result Body Mass Index 39.2 Tobacco/Smoking Status: Tobacco use Status Tobacco use date assessed 03/04/25 07/15/25 08:58 Patient Tobacco Use Status Former Tobacco user 07/15/25 08:58 Tobacco use type Cigarette 07/15/25 08:58 e-Cigarette/Vaping Use Never Used 07/15/25 08:58 Depression Screening Interpretation: Positive (Followed by psychiatry, sees Shaniqua Dubose) Depression Screening Follow-up: Existing condition, In treatment and Community Mental Health Worker F/U Thrive Assessment: Date of Thrive Assessment Date Thrive assessed 03/04/25 07/15/25 08:58 Currently or been in a relationship where the following occur: No concerns reported Const General: no acute distress and alert Orientation/consciousness: patient oriented x3 HENMT General nose exam: Normal external nose present Mouth: Normal oral and palatal mucosa present, oropharynx normal and moist mucous membranes Eyes General: appearance normal, both eyes and all related structures Neck Neck: Yes full ROM, Yes no lymphadenopathy and Yes supple Chest Chest palpation & inspection: normal inspection of the chest Breast/axilla palpation: normal palpation of the breasts Resp Effort & Inspection: normal respiratory effort and able to speak in complete sentences Auscultation: clear to auscultation bilaterally Cardio Rate: regular rate Rhythm: regular rhythm Heart sounds: S1 normal heart sound present and S2 normal heart sound present GI Palpation (GI): Soft to palpation, nontender and no masses Auscultation: normal bowel sounds General: Yes deferred Back/Spine/Pelvis Back: No back tenderness Skin General skin exam: no rashes or lesions noted Neuro General: patient oriented x3, gait normal, tone normal, moves all extremities, Normal light touch and pain sensation and no focal motor deficits Cranial nerves: Yes CN's II-XII intact bilaterally Cognition (Neuro): normal cognition Extrem General: Yes full ROM, Yes no joint enlargement, Yes no clubbing, cyanosis or edema and Yes no calf tenderness Psych Appearance: grossly normal and well kempt Mental Status: mental status grossly normal Speech and movement: Normal speech and movement present Affect: normal affect Coding Level of Care Code Est Pt Prev Care [id number]([id number]) Diagnoses Generalized anxiety disorder F41.1 Class 3 severe obesity due to excess calories without serious comorbidity with body mass index (BMI) of 40.0 to 44.9 in adult E66.01; Z68.41 Body mass index: BMI 40.0-44.9 Obesity classification: adult class 3 (BMI >= 40) Obesity type: due to excess calories Serious obesity comorbidity presence: without serious comorbidity Major depressive disorder, single episode, moderate F32.1 Heartburn R12 ADHD (attention deficit hyperactivity disorder), inattentive type F90.0 Annual visit for general adult medical examination with abnormal findings Z00.01 Additional Codes PHQ-9 - 82711 - PHQ-9 Billing: Yes ([id number]) Assessment & Plan Assessment & Plan (1) Generalized anxiety disorder: Code(s): F41.1 - Generalized anxiety disorder Category: Medical Plan: Followed by Psychiatry currently on bupropion, duloxetine and trazodone, as well as alprazolam , which he takes as needed for acute anxiety attacks (2) Obesity: Code(s): E66.9 - Obesity, unspecified Category: Medical Qualifiers: Body mass index: BMI 40.0-44.9 Obesity classification: adult class 3 (BMI >= 40) Obesity type: due to excess calories Serious obesity comorbidity presence: without serious comorbidity Qualified Code(s): E66.01 - Morbid (severe) obesity due to excess calories; Z68.41 - Body mass index [BMI] 40.0-44.9, adult Plan: Participating on online program for weight loss called [facility], currently on on semaglutide, has been tolerating well, with no adverse effects reported except for occasional constipation and has been able to successfully lose weight (3) Major depressive disorder, single episode, moderate: Code(s): F32.1 - Major depressive disorder, single episode, moderate Category: Medical Plan: Followed by Psychiatry, currently on duloxetine, bupropion, alprazolam taken as needed (4) Heartburn: Code(s): R12 - Heartburn Category: Medical Plan: Reminded to get her upper GI series done. Continued on omeprazole 20 mg daily as needed (5) ADHD (attention deficit hyperactivity disorder), inattentive type: Code(s): F90.0 - Attention-deficit hyperactivity disorder, predominantly inattentive type Category: Medical Plan: Followed by nurse Psychiatry (6) Annual visit for general adult medical examination with abnormal findings: Code(s): Z00.01 - Encounter for general adult medical examination with abnormal findings Plan: Will check appropriate labs. Recommended dental visit every 6 months and regular eye exams, at least every 2 years. Take adequate calcium in diet and vitamin-D 3 at 2000 IU per cap once a day, in addition to weight-bearing exercises to help maintain good muscle tone and weight control. Instructed to do self-breast exam, and recommended to get yearly mammogram, no longer gets cervical cancer screenings, status post hysterectomy earlier this year due to abnormal uterine bleeding. Orders: Orders Alanine Aminotransferase 07/15/25 E66.01 - Morbid (severe) obesity due to excess calories, F32.1 - Major depressive disorder, single episode, moderate, F41.1 - Generalized anxiety disorder, F90.0 - Attention-deficit hyperactivity disorder, predominantly inattentive type, R12 - Heartburn, Z68.41 - Body mass in dex [BMI] 40.0-44.9, adult Lipid Panel 07/15/25 E66.01 - Morbid (severe) obesity due to excess calories, F32.1 - Major depressive disorder, single episode, moderate, F41.1 - Generalized anxiety disorder, F90.0 - Attention-deficit hyperactivity disorder, predominantly inattentive type, R12 - Heartburn, Z68.41 - Body mass index [BMI] 40.0-44.9, adult Vitamin D 25-OH Total 07/15/25 E66.01 - Morbid (severe) obesity due to excess calories, F32.1 - Major depressive disorder, single episode, moderate, F41.1 - Generalized anxiety disorder, F90.0 - Attention-deficit hyperactivity disorder, predominantly inattentive type, R12 - Heartburn, Z68.41 - Body mass index [BMI] 40.0-44.9, adult Aspartate Amino Transferase 07/15/25 E66. - Morbid (severe) obesity due to excess calories, F32.1 - Major depressive disorder, single episode, moderate, F41.1 - Generalized anxiety disorder, F90.0 - Attention-deficit hyperactivity d isorder, predominantly inattentive type, R12 - Heartburn, Z68.41 - Body mass index [BMI] 40.0-44.9, adult Basic Metabolic Panel Fasting 07/15/25 E66. - Morbid (severe) obesity due to excess calories, F32.1 - Major depressive disorder, single episode, moderate, F41.1 - Generalized anxiety disorder, F90.0 - Attention-deficit hyperactivity disorder, predominantly inattentive type, R12 - Heartburn, Z68.41 - Body mass index [BMI] 40.0-44.9, adult Hemoglobin A1c 07/15/25 E66.01 - Morbid (severe) obesity due to excess calories, F32.1 - Major depressive disorder, single episode, moderate, F41.1 - Generalized anxiety disorder, F90.0 - Attention-deficit hyperactivity disorder, predominantly inattentive type, R12 - Heartburn, Z68.41 - Body mass index [BMI] 40.0-44.9, adult TSH reflex Free T4 07/15/25 E66.01 - Morbid (severe) obesity due to excess calories, F32.1 - Major depressive disorder, single episode, moderate, F41.1 - Generalized anxiety disorder, F90.0 - Attention-deficit hyperactivity disorder, predominantly inattentive type, R12 - Heartburn, Z68.41 - Body mass index [BMI] 40.0-44.9, adult
== END 2025-07-15 13:40 | disposition home or self-care (01) ==
LOC: HO.HMCC 08:33
PROVIDERS: PCP Internal Medicine; Visit Provider Internal Medicine
DX: Z00.01 Encounter for general adult medical examination with abnormal findings (principal); F32.1 Major depressive disorder, single episode, moderate; E66.812 Obesity, class 2; Z68.39 Body mass index [BMI] 39.0-39.9, adult; F41.1 Generalized anxiety disorder; R12 Heartburn; F90.0 Attention-deficit hyperactivity disorder, predominantly inattentive type

== ENCOUNTER → 2025-07-15 08:33 | Outpatient (BNVA) | payer OTHER, SELFPAY | PROVIDERS: PCP Internal Medicine; Visit Provider Internal Medicine | DX: Z00.01 Encounter for general adult medical examination with abnormal findings (principal); Z90.710 Acquired absence of both cervix and uterus; F41.1 Generalized anxiety disorder; E66.01 Morbid (severe) obesity due to excess calories; Z68.41 Body mass index [BMI] 40.0-44.9, adult; F32.1 Major depressive disorder, single episode, moderate; R12 Heartburn; F90.0 Attention-deficit hyperactivity disorder, predominantly inattentive type; Z13.31 Encounter for screening for depression; Z79.899 Other long term (current) drug therapy | CPT/HCPCS: 96127 ==